=== PATIENT | female | born 1950 | race Caucasian/White ===

== ENCOUNTER → 2016-11-28 | Outpatient (REF) | payer OTHER ==
[~2016-11-28] MED LIST: ASPI81TA83 OR; DETROL PO; DIPH2.5L PO; GAS-80CH OR; IBUPPOW25 PO; MELOPOW PO; MULTIVIT PO
== END ==
LOC: M LAB REF 16:59
PROVIDERS: ATTEND Nurse Practitioner Adult Health
DX: D07.39 Carcinoma in situ of other female genital organs (principal)

== ENCOUNTER → 2016-12-15 | Outpatient (REF) | payer OTHER ==
[2016-12-15 18:17] LABS: THYROXINE (T4) 10.4 UG/DL (4.5-12.0)
== END ==
LOC: M LAB REF 16:59
PROVIDERS: ATTEND Internal Medicine Medical Oncology
DX: C91.10 Chronic lymphocytic leukemia of B-cell type not having achieved remission (principal)

== ENCOUNTER → 2017-01-16 | Outpatient (REF) | payer OTHER ==
[2017-01-16 13:41] LABS: FREE T4 1.07 NG/DL (0.76-1.46)
== END ==
LOC: M LAB REF 12:50
PROVIDERS: ATTEND Internal Medicine Medical Oncology
DX: C91.10 Chronic lymphocytic leukemia of B-cell type not having achieved remission (principal)

== ENCOUNTER → 2017-02-24 | Outpatient (CLI) | payer OTHER, MEDICARE ==
[~2017-02-24] MED LIST changes: +GASTROGRAFIN SOLUTION 30ML (Q9963) As Ordered ONE; +ISOVUE-370 76% 100ML VIAL (Q9967) As Ordered ONE
--- NOTE | 2017-02-24 13:49 | REP ---
Clinical: Chronic lymphocytic leukemia for follow up. Comparison: 08/04/2016. Technique: Axial contrast enhanced images from the lung bases to the pubic symphysis using oral and 100 ml Isovue 370 intravenous contrast material precontrast and delayed images of the abdomen as well as coronal and sagittal re-formations. Findings: Lung bases are clear. Visualized heart and pericardium are normal. Liver, spleen, pancreas, gallbladder, bilateral adrenal glands kidneys are normal. The enteric system is without obstruction or acute inflammatory process. Evidence of prior hiatal hernia repair at the gastroesophageal junction. Pelvis demonstrates normal bladder and evidence for prior hysterectomy no pelvic fluid/ascites. No free air. Previously noted mild retroperitoneal adenopathy has improved and currently the largest lymph node measures approximately 2.0 x 1.3 cm. Musculoskeletal structures demonstrate age-related degenerative changes without focal osseous abnormality. Impression: 1. Few retroperitoneal lymph nodes appear improved with the largest node measuring 2.0 x 1.3 cm. 2. No ascites or mass lesion. Signed by Nirmal Bansal MD 02/24/2017 01:41 P
--- NOTE | 2017-02-24 15:59 | REP ---
CT study of the chest with IV contrast: History: History of CLL. Abdominal and chest pain. Comparison chest CT study August 04, 2016. CT contrast dose: 100 mL of Isovue [address] chest findings: The lung motley are clear. There is no evidence of pleural or pericardial effusion. No hilar or mediastinal mass or adenopathy is observed. No adrenal lesion is seen. There are some surgical clips in the upper abdomen. The gallbladder is unremarkable. No hepatic or splenic lesion is seen. No bony destructive lesion is observed. Impression: No acute cardiopulmonary disease seen. Signed by Claus Chandler MD 02/24/2017 04:40 P
== END ==
LOC: M RAD 11:11
PROVIDERS: ATTEND Internal Medicine Medical Oncology
DX: C91.10 Chronic lymphocytic leukemia of B-cell type not having achieved remission (principal); R59.9 Enlarged lymph nodes, unspecified

== ENCOUNTER → 2017-06-19 | Outpatient (REF) | payer OTHER, MEDICARE ==
[~2017-06-19] MED LIST changes: -GASTROGRAFIN SOLUTION 30ML (Q9963) As Ordered ONE; -ISOVUE-370 76% 100ML VIAL (Q9967) As Ordered ONE
== END ==
LOC: M LAB REF 16:10
PROVIDERS: ATTEND Nurse Practitioner Adult Health
DX: R19.7 Diarrhea, unspecified (principal)

== ENCOUNTER → 2017-07-11 | Outpatient (CLI) | payer OTHER, MEDICARE ==
[~2017-07-11] MED LIST changes: +GASTROGRAFIN SOLUTION 30ML (Q9963) As Ordered ONE; +ISOVUE-370 76% 100ML VIAL (Q9967) As Ordered ONE
--- NOTE | 2017-07-12 05:47 | REP ---
Clinical: Chronic lymphocytic leukemia. Technique: Axial contrast enhanced images from the lung bases to the pubic symphysis using oral and 100 ml Isovue 370 intravenous contrast material with precontrast and delayed images of the abdomen along with coronal and sagittal re-formations. Comparison: 02/24/2017. Findings: Few scattered retroperitoneal lymph nodes primarily noted at the level of the kidneys are essentially unchanged with the largest lymph node measuring 2.0 x 1.3 cm (image 68). No new or enlarging adenopathy or mass lesion identified. Liver, spleen, atrophic pancreas, gallbladder, bilateral adrenal glands and kidneys are relatively normal. The enteric system is without obstruction or acute inflammatory process. Scattered colonic diverticula noted without acute diverticulitis. Pelvis demonstrates collapsed bladder and evidence for prior hysterectomy. No pelvic fluid or ascites. No free air. Abdominal aorta demonstrates atherosclerotic changes without aneurysm or dissection. Musculoskeletal structures demonstrate age-related degenerative change without focal osseous abnormality. 3 mm noncalcified nodule in the left lung base (image 23). Impression: Few stable retroperitoneal lymph nodes are again identified measuring up to 2.0 x 1.3 cm. No further adenopathy, mass, or ascites. 2. Scattered diverticula without acute diverticulitis. 3. 3 mm noncalcified nodule in the left lower lobe. Signed by Nirmal Bansal MD 07/12/2017 05:39 A
--- NOTE | 2017-07-12 07:51 | REP ---
Clinical: Chronic lymphocytic leukemia. Technique: Axial contrast enhanced images from the thoracic inlet to the upper abdomen using 100 ml Isovue 370 intravenous contrast material with coronal and sagittal re-formations. Comparison: 02/24/2017. Findings: Lung motley demonstrate chronic interstitial changes. No acute consolidation, significant nodule or mass lesion. No pleural effusion/reaction or pneumothorax. Tracheobronchial tree is patent. No axillary, hilar or mediastinal adenopathy. Mediastinum demonstrates atherosclerotic changes to the thoracic aorta without aneurysm or dissection. No cardiomegaly or pericardial effusion. Limited upper abdomen demonstrates normal bilateral adrenal glands and surgical clips at the gastroesophageal junction suggesting prior fundoplasty. Surrounding musculoskeletal structures without focal osseous abnormality. Impression: Chronic interstitial changes. No acute mediastinal or pleuroparenchymal process. Signed by Nirmal Bansal MD 07/12/2017 07:42 A
== END ==
LOC: M RAD 15:13
PROVIDERS: ATTEND Internal Medicine Medical Oncology
DX: C91.10 Chronic lymphocytic leukemia of B-cell type not having achieved remission (principal)

== ENCOUNTER → 2017-12-29 | Outpatient (CLI) | payer OTHER, MEDICARE ==
[~2017-12-29] MED LIST changes: -ASPI81TA83 OR; -DETROL PO; -DIPH2.5L PO; -GAS-80CH OR; +GASTROGRAFIN SOLUTION 30ML (Q9963) As Ordered; -GASTROGRAFIN SOLUTION 30ML (Q9963) As Ordered ONE; -IBUPPOW25 PO; +ISOVUE-370 76% 100ML VIAL (Q9967) As Ordered; -ISOVUE-370 76% 100ML VIAL (Q9967) As Ordered ONE; -MELOPOW PO; -MULTIVIT PO
== END ==
LOC: M RAD 08:48
DX: C91.10 Chronic lymphocytic leukemia of B-cell type not having achieved remission (principal); Z92.21 Personal history of antineoplastic chemotherapy
CPT/HCPCS: Q9963

== ENCOUNTER → 2018-02-06 | Outpatient (REF) | payer OTHER, MEDICARE ==
[2018-02-06 14:14] LABS: FERRITIN 20 NG/ML (8-252); IRON (FE) 54 UG/DL (50-170); PERCENT SATURATION 15.1 % (13.2-45.0); TOTAL IRON BINDING CAPACITY 357 UG/DL (250-450)
== END ==
LOC: M LAB REF 13:16
DX: C91.10 Chronic lymphocytic leukemia of B-cell type not having achieved remission (principal)

== ENCOUNTER → 2018-03-26 | Outpatient (REF) | payer OTHER, MEDICARE ==
[2018-03-28 09:18] LABS: LDL DIRECT 93 mg/dL (0-99)
== END ==
LOC: M LAB REF 17:11
DX: E78.5 Hyperlipidemia, unspecified (principal)
CPT/HCPCS: 83721

== ENCOUNTER → 2018-03-26 | Outpatient (REF) | payer OTHER, MEDICARE | LOC: M LAB REF 15:28 | DX: R19.7 Diarrhea, unspecified (principal) | CPT/HCPCS: 87507 ==

== ENCOUNTER → 2018-06-18 | Outpatient (REF) | payer OTHER, MEDICARE ==
[2018-06-18 18:43] LABS: FERRITIN 15 NG/ML (8-252); IRON (FE) 40 UG/DL (50-170); PERCENT SATURATION 11.9 % (13.2-45.0); TOTAL IRON BINDING CAPACITY 337 UG/DL (250-450)
== END ==
LOC: M LAB REF 17:19
DX: D64.9 Anemia, unspecified (principal); C91.10 Chronic lymphocytic leukemia of B-cell type not having achieved remission

== ENCOUNTER 2018-10-15 11:46 | Day surgery (SDC) | payer OTHER, MEDICARE ==
[~2018-10-15] VITALS: Ht 162.6 cm; Wt 120.2 kg
[~2018-10-15 11:46] MED LIST changes: +ACET1TAB16 PO; +ASPI81TA83 OR; +BACT800T5 PO; +DETR4CAP PO; +DETROL PO; +DICY1CAP8 PO; +DIPH2.5L PO; +ENAL5TAB PO; +FURO20TA2 PO; +GABA-843 PO; +GAS-80CH OR; -GASTROGRAFIN SOLUTION 30ML (Q9963) As Ordered; +IBUPPOW25 PO; +IMBR1CAP PO; -ISOVUE-370 76% 100ML VIAL (Q9967) As Ordered; +LOMO2.5T PO; +MELOPOW PO; +MULTIVIT PO; +NAPR500T6 PO; +NS 1,000 ML IV ONE; +OMEP40CA2 PO; +VITA2000 PO; +ZOFR4TAB16 PO
[2018-10-15] MEDS ORDERED: fentaNYL 100 MCG/2 ML INJECTION (J3010) As Ordered ONE (14:59)
[2018-10-15] MEDS ORDERED: LIDOCAINE 2% INJ 100 MG/5 ML SYRINGE As Ordered ONE (14:59)
[2018-10-15] MEDS ORDERED: PROPOFOL 200 MG/20 ML VIAL As Ordered ONE (14:59)
--- NOTE | 2018-10-15 15:14 | ROOR ---
Patient Name: Aurora Vazquez Procedure Date: 10/15/2018 3:00 PM Date of : 1950 Age: 67 Room: [facility] Gender: Female Note Status: Finalized Procedure: Upper GI endoscopy Indications: Iron deficiency anemia Providers: Lamonte KUMAR MD Referring MD: Sushila Berry NP, Ayleen HARMON MD Requesting Provider: Medicines: Monitored Anesthesia Care Complications: No immediate complications. Procedure: Pre-Anesthesia Assessment: - The heart rate, respiratory rate, oxygen saturations, blood pressure, adequacy of pulmonary ventilation, and response to care were monitored throughout the procedure. The Endoscope was introduced through the mouth, and advanced to the second part of duodenum. The upper GI endoscopy was accomplished without difficulty. The patient tolerated the procedure well. Findings: The esophagus was normal. The stomach was normal. The examined duodenum was normal. Biopsies for histology were taken with a cold forceps in the second portion of the duodenum and in the third portion of the duodenum for evaluation of celiac disease. Impression: - Normal esophagus. - Normal stomach. - Normal examined duodenum. - Biopsies were taken with a cold forceps for evaluation of celiac disease. Recommendation: - Telephone endoscopist for pathology results in 2 weeks. - Observe patient's clinical course. Lamonte Kumar MD Lamonte KUMAR MD 10/15/2018 3:13:45 PM This report has been signed electronically. Number of Addenda: 0 Note Initiated On: 10/15/2018 3:00 PM Estimated Blood Loss: Estimated blood loss: none.
--- NOTE | 2018-10-15 15:33 | ROOR ---
Patient Name: Aurora Vazquez Procedure Date: 10/15/2018 3:03 PM Date of : 1950 Age: 67 Room: [facility] Gender: Female Note Status: Finalized Procedure: Colonoscopy Indications: Iron deficiency anemia Providers: Lamonte KUMAR MD Referring MD: Sushila Berry NP, Ayleen HARMON MD Requesting Provider: Medicines: Monitored Anesthesia Care Complications: No immediate complications. Procedure: Pre-Anesthesia Assessment: - The heart rate, respiratory rate, oxygen saturations, blood pressure, adequacy of pulmonary ventilation, and response to care were monitored throughout the procedure. The Colonoscope was introduced through the anus and advanced to the terminal ileum, with identification of the appendiceal orifice and IC valve. The colonoscopy was performed without difficulty. The patient tolerated the procedure well. The quality of the bowel preparation was good. Findings: The perianal and digital rectal examinations were normal. A 4 mm polyp was found in the sigmoid colon. The polyp was sessile. The polyp was removed with a cold snare. Resection and retrieval were complete. The exam was otherwise without abnormality on direct and retroflexion views. The terminal ileum appeared normal. Impression: - The examined portion of the ileum was normal. - One 4 mm polyp in the sigmoid colon, removed with a cold snare. Resected and retrieved. - The colon examination was otherwise normal on direct and retroflexion views. Recommendation: - Telephone endoscopist for pathology results in 2 weeks. - If the pathology report reveals adenomatous tissue, then repeat the colonoscopy for surveillance in 5 years. - If the pathology report indicates hyperplastic polyp, then repeat colonoscopy for screening purposes in 10 years. Lamonte Kumar MD Lamonte KUMAR MD 10/15/2018 3:32:47 PM This report has been signed electronically. Number of Addenda: 0 Note Initiated On: 10/15/2018 3:03 PM Estimated Blood Loss: Estimated blood loss: none.
[2018-10-15 16:00] VITALS: BP 151/93
== END 2018-10-15 16:10 | disposition home or self-care (01) ==
LOC: M OPP 11:46
PROVIDERS: ATTEND Internal Medicine Gastroenterology
DX: D50.9 Iron deficiency anemia, unspecified (principal); R19.7 Diarrhea, unspecified; K63.5 Polyp of colon; E11.9 Type 2 diabetes mellitus without complications; M79.7 Fibromyalgia; K58.9 Irritable bowel syndrome, unspecified; K57.90 Diverticulosis of intestine, part unspecified, without perforation or abscess without bleeding; R12 Heartburn; Z85.43 Personal history of malignant neoplasm of ovary; Z79.899 Other long term (current) drug therapy; Z88.5 Allergy status to narcotic agent
CPT/HCPCS: 43239; 45385; 88305; J3010

== ENCOUNTER → 2018-12-31 | Outpatient (CLI) | payer OTHER, MEDICARE ==
[~2018-12-31] MED LIST changes: +B121000T SL; +KENAAER3 TOP; -NS 1,000 ML IV ONE; +VITA1CAP25 PO
[2018-12-31 17:26] LABS: BASO % 0.5 % (0.0-1.0); EOS # 0.2 10^3/uL (0.0-0.50); EOS % 2.9 % (0.0-3.0); HEMATOCRIT 37.6 % (36.0-47.0); HEMOGLOBIN 12.1 g/dl (12.0-15.5); LYMPH # 3.4 10^3/uL (1.5-4.5); LYMPH % 46.8 % (24.0-44.0); MEAN CORPUSCULAR HEMOGLOBIN 28.2 pg (27.0-33.0); MEAN CORPUSCULAR HGB CONC 32.2 g/dl (32.0-36.5); MEAN CORPUSCULAR VOLUME 87.6 fl (80.0-96.0); MONO # 0.5 10^3/uL (0.0-0.8); MONO % 6.5 % (0.0-5.0); NEUTROPHILS # 3.1 10^3/uL (1.8-7.7); NEUTROPHILS % 42.8 % (36.0-66.0); PLATELET COUNT, AUTOMATED 155 10^3/uL (150-450); RED BLOOD COUNT 4.29 10^6/uL (4.00-5.40); WHITE BLOOD COUNT 7.4 10^3/uL (4.0-10.0)
[2018-12-31 17:27] LABS: ALBUMIN 3.9 GM/DL (3.2-5.2); ALT/SGPT 25 U/L (12-78); BILIRUBIN,TOTAL 0.3 MG/DL (0.2-1.0); BLOOD UREA NITROGEN 17 MG/DL (7-18); CALCIUM LEVEL 8.6 MG/DL (8.8-10.2); CARBON DIOXIDE LEVEL 29 MEQ/L (21-32); CHLORIDE LEVEL 107 MEQ/L (98-107); CREATININE FOR GFR 0.93 MG/DL (0.55-1.30); FERRITIN 688 NG/ML (8-252); GLOMERULAR FILTRATION RATE > 60.0 (>45); GLUCOSE, FASTING 132 MG/DL (70-100); IMMUNOGLOBULIN A 94.4 MG/DL (70-400); LDH LACTATE DEHYDROGENASE 180 U/L (84-246); POTASSIUM SERUM 5.4 MEQ/L (3.5-5.1); SODIUM LEVEL 140 MEQ/L (136-145); TOTAL PROTEIN 6.3 GM/DL (6.4-8.2)
[2019-01-01 14:11] LABS: VITAMIN B12 LEVEL 671 PG/ML (247-911)
== END ==
LOC: M LAB 16:19
PROVIDERS: ATTEND Internal Medicine Hematology & Oncology
DX: Z51.81 Encounter for therapeutic drug level monitoring (principal)

== ENCOUNTER → 2019-01-07 | Outpatient (CLI) | payer OTHER, MEDICARE ==
--- NOTE | 2019-01-07 17:18 | REP ---
Right lower extremity deep vein duplex ultrasound: The deep veins demonstrate normal compression, normal Doppler color flow and normal Doppler waveforms with respiration and augmentation from the popliteal vein to the common femoral vein. There is a popliteal fossa Lama's cyst measuring 4.7 x 2.5 x 3.3 cm. Impression: There is no deep vein thrombus. Popliteal fossa Lama's cyst. Electronically Signed by Jerry Santoro MD 01/07/2019 05:10 P
== END ==
LOC: M RAD 16:20
PROVIDERS: ATTEND Nurse Practitioner Family
DX: M79.604 Pain in right leg (principal); R22.41 Localized swelling, mass and lump, right lower limb

== ENCOUNTER → 2019-01-29 | Outpatient (CLI) | payer OTHER, MEDICARE ==
[2019-01-29 16:13] LABS: BASO # 0.1 10^3/uL (0.0-0.2); BASO % 0.6 % (0.0-1.0); EOS # 0.2 10^3/uL (0.0-0.50); EOS % 2.9 % (0.0-3.0); HEMATOCRIT 38.8 % (36.0-47.0); HEMOGLOBIN 12.5 g/dl (12.0-15.5); LYMPH # 3.5 10^3/uL (1.5-4.5); MEAN CORPUSCULAR HEMOGLOBIN 28.9 pg (27.0-33.0); MEAN CORPUSCULAR HGB CONC 32.2 g/dl (32.0-36.5); MEAN CORPUSCULAR VOLUME 89.8 fl (80.0-96.0); MONO # 0.4 10^3/uL (0.0-0.8); MONO % 4.8 % (0.0-5.0); NEUTROPHILS # 4.1 10^3/uL (1.8-7.7); NEUTROPHILS % 48.9 % (36.0-66.0); PLATELET COUNT, AUTOMATED 167 10^3/uL (150-450); RED BLOOD COUNT 4.32 10^6/uL (4.00-5.40); WHITE BLOOD COUNT 8.3 10^3/uL (4.0-10.0)
[2019-01-29 16:48] LABS: ALBUMIN 3.9 GM/DL (3.2-5.2); BILIRUBIN,TOTAL 0.3 MG/DL (0.2-1.0); CALCIUM LEVEL 8.8 MG/DL (8.8-10.2); CREATININE FOR GFR 1.09 MG/DL (0.55-1.30); GLOMERULAR FILTRATION RATE 53.3 (>45); POTASSIUM SERUM 5.2 MEQ/L (3.5-5.1); TOTAL PROTEIN 6.3 GM/DL (6.4-8.2)
== END ==
LOC: M LAB 15:27
PROVIDERS: ATTEND Internal Medicine Hematology & Oncology
DX: C91.10 Chronic lymphocytic leukemia of B-cell type not having achieved remission (principal); D72.820 Lymphocytosis (symptomatic); D64.9 Anemia, unspecified

== ENCOUNTER → 2019-04-08 | Outpatient (REF) | payer OTHER, MEDICARE | LOC: M LAB REF 16:33 | PROVIDERS: ATTEND Nurse Practitioner Adult Health | DX: Z11.59 Encounter for screening for other viral diseases (principal) ==

== ENCOUNTER → 2019-05-03 | Outpatient (CLI) | payer OTHER, MEDICARE ==
--- NOTE | 2019-05-04 07:27 | REP ---
Clinical: Fall. Bilateral elbow pain . Technique: AP, lateral, bilateral oblique views of the right and left elbow. Findings: No acute fracture or dislocation is appreciated. Joint spaces and surrounding soft tissues appear normal. Lateral view demonstrates normal positioning to the anterior and posterior fat pads without evidence for effusion/hemarthrosis. No subcutaneous emphysema or foreign body identified. Impression: Normal bilateral elbow radiographs. Electronically Signed by Nirmal Bansal MD 05/04/2019 07:19 A
== END ==
LOC: M RAD 18:46
PROVIDERS: ATTEND Physician Assistant
DX: M25.521 Pain in right elbow (principal); M25.522 Pain in left elbow

== ENCOUNTER → 2019-07-19 | Outpatient (CLI) | payer OTHER, MEDICARE ==
[~2019-07-19] MED LIST changes: +AMLO5TAB6 PO; +D200CAP2 PO; -OMEP40CA2 PO; +OMEP40CA97 PO; +THERTAB52 PO
--- NOTE | 2019-07-19 19:15 | REP ---
MRI left elbow without contrast: History: Pain in the left elbow. Comparison left elbow radiographs are from May 03, 2019. Rule out cubital nerve compression. Technique: Axial, coronal and sagittal imaging planes are utilized for T1 and T2-weighted scans obtained with and without fat saturation. MRI findings: Cortical and medullary bone signal intensity are normal in the distal humerus, proximal radius, and proximal ulna. Triceps tendon, biceps tendon, and brachialis tendons appear intact. No evidence of elbow joint effusion is seen. Medial and lateral collateral ligaments appear intact. There is some edema adjacent to the medial epicondyle consistent with medial epicondylitis. No articular cartilage lesion is appreciated. Axial T1 and T2-weighted scans do not show abnormal T2 hyperintensity or thickening in the ulnar nerve. There is no evidence of accessory muscle or abnormal tethering of course in the ulnar nerve in the scan plane. There is no evidence of distal humeral exostosis. Impression: No MR evidence of ulnar nerve compression seen. There is some T2 hyperintensity at the medial epicondyle which may reflect medial epicondylitis. Electronically Signed by Claus Chandler MD 07/19/2019 07:54 P
== END ==
LOC: M PLARAD 15:26
PROVIDERS: ATTEND Orthopaedic Surgery Sports Medicine
DX: R60.0 Localized edema (principal); M25.522 Pain in left elbow

== ENCOUNTER 2019-09-01 02:39 | Inpatient (IN) | payer OTHER, MEDICARE ==
[~2019-09-01] VITALS: Ht 162.6 cm; Wt 122.3 kg
[2019-09-01 03:24] LABS: BASO % 0.4 % (0.0-1.0); EOS % 0.4 % (0.0-3.0); HEMATOCRIT 43.5 % (36.0-47.0); HEMOGLOBIN 13.8 g/dl (12.0-15.5); LYMPH # 3.1 10^3/uL (1.5-5.0); LYMPH % 31.1 % (24.0-44.0); MEAN CORPUSCULAR HGB CONC 31.7 g/dl (32.0-36.5); MEAN CORPUSCULAR VOLUME 91.4 fl (80.0-96.0); MONO # 0.4 10^3/uL (0.0-0.8); NEUTROPHILS # 6.3 10^3/uL (1.5-8.5); NEUTROPHILS % 63.8 % (36.0-66.0); PLATELET COUNT, AUTOMATED 161 10^3/uL (150-450); RED BLOOD COUNT 4.76 10^6/uL (4.00-5.40); WHITE BLOOD COUNT 9.8 10^3/uL (4.0-10.0)
[2019-09-01] MEDS ORDERED: METOCLOPRAMIDE INJ 10MG/2ML VIAL (J2765) IV ONE (03:30)
[2019-09-01] MEDS ORDERED: MORPHINE 4 MG/ML 1ML VIAL/SYRINGE (J2270) IV ONE ×3 (03:30→05:30)
[2019-09-01 04:11] LABS: ALBUMIN 3.9 GM/DL (3.2-5.2); BILIRUBIN,DIRECT 0.5 MG/DL (0.0-0.2); BILIRUBIN,TOTAL 1.1 MG/DL (0.2-1.0); CALCIUM LEVEL 9.4 MG/DL (8.8-10.2); CREATININE FOR GFR 1.06 MG/DL (0.55-1.30); POTASSIUM SERUM 4.3 MEQ/L (3.5-5.1); TOTAL PROTEIN 6.7 GM/DL (6.4-8.2)
[2019-09-01] MEDS ORDERED: ISOVUE-370 76% 100ML VIAL (Q9967) As Ordered ONE (04:22)
[2019-09-01] MEDS ORDERED: NS 1,000 ML IV ONE (04:30)
[2019-09-01] MEDS ORDERED: LIDOCAINE 2% 5ML JELLY UROJET TOP ONE (05:00)
--- NOTE | 2019-09-01 05:01 | REPVR ---
PROCEDURE INFORMATION: Exam: CT Abdomen And Pelvis With Contrast Exam date and time: 09/01/2019 4:29 AM Age: 68 years old Clinical history: Abdominal pain; Generalized; Additional info: Pancreatitis TECHNIQUE: Imaging protocol: Computed tomography of the abdomen and pelvis with intravenous contrast. Radiation optimization: All CT scans at this facility use at least one of these dose optimization techniques: automated exposure control; mA and/or kV adjustment per patient size (includes targeted exams where dose is matched to clinical indication); or iterative reconstruction. Contrast material: ISOVUE 370; Contrast volume: 100 ml; Contrast route: IV; COMPARISON: CT ABD PELVIS W/O FOL BY WIT 12/29/2017 10:12 AM FINDINGS: Lungs: There are bilateral posterior dependent lung atelectasis. Pleural space: There is a partially imaged pleural-based 6-7 mm nodule (axial image 1). Another 3 mm pleural-based nodule seen in the right middle lobe. There is a 4-5 mm lingular nodule (axial image 6). Liver: The liver appeared to be hypoattenuated. Gallbladder and bile ducts: Normal. No calcified stones. No ductal dilation. Pancreas: The pancreas is fatty-replaced. Spleen: Normal. No splenomegaly. Adrenals: Normal. No mass. Kidneys and ureters: Normal. No hydronephrosis. Stomach and bowel: The stomach is massively distended with air. There are multiple markedly dilated bowel loops measuring up to 5.5 cm with collapsed distal small bowel loops. There appears to be progressive decrease in caliber of bowel dilatation in the lower abdomen. Appendix: No evidence of appendicitis. Intraperitoneal space: There is diffuse mesenteric haziness. There are multiple prominent small bowel mesenteric lymph nodes measuring up to 1.7 cm. Vasculature: There is moderate aortic and iliac mural calcifications. Lymph nodes: There are multiple prominent lymph nodes in the duglas hepatis measuring up to 4.0 x 2.5 cm. Multiple bulky retroperitoneal lymph nodes seen measuring up to 6.7 x 4.2 cm with lymph nodes seen in the left periaortic space, aortocaval space and pericaval space. Shotty inguinal and bilateral axillary lymph nodes seen. Multiple enlarged pelvic sidewall lymph nodes seen. Bladder: Unremarkable as visualized. Reproductive: Unremarkable as visualized. Bones/joints: There is severe L4-5 and L5 S1 as well as L2-L3 disc degenerative changes with facet arthrosis. There is a grade 1 retrolisthesis of L2 on L3. Soft tissues: Unremarkable. IMPRESSION: 1. Multiple dilated small bowel loops measuring up to 5.5 cm with marked dilatation of the stomach and duodenum with nondilated distal small bowel loop but no obvious sudden transition point. Findings suggestive of small bowel obstruction, partial or complete. 2. Bulky retroperitoneal and duglas hepatis adenopathy in addition to numerous shotty and prominent bilateral inguinal, pelvic sidewalls, diffuse mesenteric, retrocrural and axillary shotty lymph nodes. 3. Fatty infiltration of the liver. 4. Right middle lobe and lingular nodules measuring up to 6-7 mm. Given the findings of the extensive adenopathy, [facility] follow up recommendations for incidental nodules are not indicated. Dedicated CT scan of the chest is suggested for better evaluation of the lung parenchyma. Electronically signed by: Brian Girard On 09/01/2019 05:01:12 AM
[2019-09-01] MEDS ORDERED: MORPHINE 2 MG/ML 1ML VIAL (J2270) IV PRN (06:15)
[2019-09-01] MEDS ORDERED: ONDANSETRON 4MG/2ML VIAL (J2405) IV PRN (06:15)
[2019-09-01] MEDS ORDERED: GLUCAGON FOR INJ 1 MG VIAL (J1610) SC PRN (07:00)
[2019-09-01] MEDS ORDERED: DEXTROSE 50% 50 ML SYRINGE IV PRN (07:00)
[2019-09-01] MEDS ORDERED: GLUCOSE 4 GM CHEW TABLET PO PRN (07:00)
--- NOTE | 2019-09-01 07:03 | HPEPDOC ---
General Date of Admission 09/01/19 Date of Service: Sep 01, 2019 Chief Complaint The patient is a 68-year-old female admitted with a reason for visit of Abd/Shoulder Pain. Source: Patient, RN/MD, Old records Exam Limitations: No limitations History of Present Illness 68 year old female with PMH of CLL/Small lymphocytic lymphoma in remission, Hiatal hernia s/p jocelin fundoplication, Diabetes diet controlled, Morbid obesity, hypertension, IBS, fibromyalgia, Ovarian cancer s/p HALLIE and BSO in 1986, iron def anemia,, esophageal dilatation, c section, appendectomy, rectocele repair, 3 mastoidectomies with cochlear implant which did not work, nerve block for back pain, carpal tunnel release on right in , tonsillectomy , carpal tunnel repair on the left on 08/27/19presented to the ED for abdominal pain , nausea, dry heaves, and abdominal bloating and distension for 2 to 3 days worst last night so came to the ED this morning. The abdominal pain was diffuse 8/10 intensity stretching in type with extreme distension and tightness of the abdomen. She had a bowel movement 2 days ago. Normally her bowel movements are irregular due to IBS. In the ED CT showed SBO . Multiple dilated small bowel loops measuring up to 5.5 cm with marked dilatation of the stomach and duodenum with nondilated distal small bowel loop but no obvious sudden transition point. Findings suggestive of small bowel obstruction, partial or complete. Also Bulky retroperitoneal and duglas hepatis adenopathy in addition to numerous shotty and prominent bilateral inguinal, pelvic sidewalls, diffuse mesenteric, retrocrural and axillary shotty lymph nodes.. Labs were significant for elevated lipase > 4000 . NG placement in the ED produced huge amounts of air. Patient was admitted for SBO and Pancreatitis. Home Medications Scheduled Amlodipine Besylate (Amlodipine Besylate) 5 Mg Tablet, 5 MG PO DAILY, (Reported) Cholecalciferol (Vitamin D3) (Vitamin D3) 2,000 Unit Capsule, 2,000 UNITS PO DAILY, (Reported) Cyanocobalamin (Vitamin B-12) (Vitamin B-12) 1,000 Mcg Tab, 500 MCG SL DAILY Dicyclomine HCl (Dicyclomine HCl) 10 Mg Cap, 10 MG PO BID for irritable bowel symptoms, (Reported) Furosemide (Furosemide) 20 Mg Tab, 20 MG PO DAILY, (Reported) Gabapentin (Gabapentin) 300 Mg Cap, 300 MG PO TID, (Reported) Naproxen (Naproxen) 500 Mg Tab, 500 MG PO BID, (Reported) Omeprazole (Omeprazole) 40 Mg Cap, 40 MG PO BID, (Reported) Tolterodine Tartrate (Detrol LA) 4 Mg Cap, 4 MG PO DAILY, (Reported) Scheduled PRN Acetaminophen with Codeine (Acetaminophen-Cod #3 Tablet) 1 Tab Tab, 1 TAB PO Q6H PRN for PAIN, (Reported) Diphenoxylate HCl/Atropine (Lomotil 2.5-0.025 mg Tablet) 1 Tab Tab, 1 TAB PO QIDP PRN for DIARRHEA, (Reported) Allergies Coded Allergies: Quinolones (Verified Adverse Reaction, Intermediate, on chemo, 01/03/19) hydrocodone (Verified Adverse Reaction, Intermediate, n/v, 01/03/19) tetracycline (Verified Adverse Reaction, Mild, hyper, couldn't sleep, 01/03/19) Past Medical History Medical History CLL/Small lymphocytic lymphoma in remission, c section, appendectomy, Ovarian cancer s/p HALLIE and BSO in 1986, Hiatal hernia s/p laparoscopic jocelin fundoplication in late , Diabetes diet controlled, Morbid obesity, hypertension, IBS, fibromyalgia, iron def anemia,, esophageal dilatation, rectocele repair, 3 mastoidectomies with cochlear implant which did not work, nerve block for back pain, carpal tunnel release on cheyan[place] right in , tonsillectomy carpal tunnel repair on the left on 08/27/19 Family History Significant Family History: Cancer (sister gastric cancer , another brother prostate cancer , another brother sarcoma , ), Diabetes (mother and 1 brother), Heart disease (another brother), Hypertension (brother) Social History * Smoker: Denies Alcohol: Denies Drugs: denies A-FIB/CHADSVASC A-FIB History Current/History of A-Fib/PAF?: No Review of Systems Constitutional: Denies: Chills, Fever, Night Sweats Eyes: Denies: Pain, Vision change ENT: Denies: Head Aches, Ear Pain, Dysphagia Skin: Denies: Rash, Lesions, Breakdown Pulmonary: Denies: Dyspnea, Cough Cardiovascular: Denies: Chest Pain, Palpitations, Orthopnea, Paroxysmal Noc. Dyspnea, Lt Headedness Gastrointestinal: Reports: Nausea, Abdominal Pain, Other Symptoms (dry heaves) Genitourinary: Denies: Dysuria, Frequency, Incontinence, Retention Musculoskeletal: Reports: Back Pain, Hand Pain Neurological: Denies: Weakness, Numbness, Change in speech, Confusion Physical Examination General Exam: Positive: Alert, Cooperative, No Acute Distress Eye Exam: Positive: PERRLA, Conjunctiva & lids normal, EOMI; Negative: Sclera icteric ENT Exam: Positive: Atraumatic, Mucous membr. moist/pink, Pharynx Normal Neck Exam: Positive: Supple; Negative: JVD, thyromegaly Chest Exam: Positive: Normal air movement, Other (few bibasal crackles) Heart Exam: Positive: Rate Normal, Regular Rhythm, Normal S1, Normal S2; Negative: Murmurs, Rubs Telemetry: Positive: No significant arrhythmia Abdomen Exam: Positive: BS Hypoactive, Soft, Tenderness (in the epigastrium) Extremity Exam: Positive: Edema (trace); Negative: Clubbing, Cyanosis Skin Exam: Positive: Nl turgor and temperature; Negative: Breakdown, Lesion Neuro Exam: Positive: Normal Speech, Strength at 5/5 X4 ext, Normal Tone Psych Exam: Positive: Mood NL, Memory Intact, Oriented x 3 Vital Signs Vital Signs Date Time Temp Pulse Resp B/P (MAP) Pulse Ox O2 Delivery O2 Flow Rate FiO2 09/01/19 05:39 18 09/01/19 05:31 97.6 108 103/57 (72) 93 Room Air Laboratory Data Labs 24H Laboratory Tests 2 09/01/19 03:15: Immature Granulocyte % (Auto) 0.3, Neutrophils (%) (Auto) 63.8, Lymphocytes (%) (Auto) 31.1, Monocytes (%) (Auto) 4.0, Eosinophils (%) (Auto) 0.4, Basophils (%) (Auto) 0.4, Neutrophils # (Auto) 6.3, Lymphocytes # (Auto) 3.1, Monocytes # (A uto) 0.4, Eosinophils # (Auto) 0.0, Basophils # (Auto) 0.0, Nucleated Red Blood Cells % (auto) 0.0, Urine Color YELLOW, Urine Appearance CLEAR, Urine pH 5.0, Urine Specific Bon[place]arte 1.038, Urine Protein NEGATIVE, Urine Glucose (UA) 3+H, Urine Ketones 1+H, Urine Blood NEGATIVE, Urine Nitrite NEGATIVE, Urine Bilirubin NEGATIVE, Urine Urobilinogen 0.2, Urine Leukocyte Esterase NEGATIVE, Urine WBC (Auto) 1, Urine RBC (Auto) 1, Urine Hyaline Casts (Auto) 0, Urine Bacteria (Auto) NEGATIVE, Urine Squamous Epithelial Cells 1, Urine Sperm (Auto) , Anion Gap 9, Glomerular Filtration Rate 55.0, Calcium Level 9.4, Total Bilirubin 1.1H, Direct Bilirubin 0.5H, Aspartate Amino Transf (AST/SGOT) 112H, Alanine Aminotransferase (ALT/SGPT) 64, Alkaline Phosphatase 121H, Total Protein 6.7, Albumin 3.9, Albumin/Globulin Ratio 1.39, Lipase 4739H 09/01/19 06:12: CBC/BMP Laboratory Tests 09/01/19 03:15 Assessment/Plan 68 year old female with PMH of CLL/Small lymphocytic lymphoma in remission, Hiatal hernia s/p jocelin fundoplication, Diabetes diet controlled, Morbid obesi ty, hypertension, IBS, fibromyalgia, Ovarian cancer s/p HALLIE and BSO in 1986, iron def anemia,, esophageal dilatation, c section, appendectomy, rectocele repair, 3 mastoidectomies with cochlear implant which did not work, nerve block for back pain, carpal tunnel release on right in , tonsillectomy , carpal tunnel repair on the left on 08/27/19 presented to the ED for abdominal pain , nausea, dry heaves, and abdominal bloating and distension for 2 to 3 days worst last night so came to the ED this morning. The abdominal pain was diffuse 8/10 intensity stretching in type with extreme distension and tightness of the abdomen. She had a bowel movement 2 days ago. She was found to have SBO and pancreatitis. SBO NPO, NG tube to LIS, IVF, zofran and morphine. consult surgery possibly cause adhesions from multiple abdominal surgeries particularly the Jocelin fundoplication vs compression by bulky retroperitoneal lymph nodes May have been precipitated by recent surgery and use of tylenol with codeine. pateint has also been taking the imodium, detrol, diccycclomine which may have worsened the problem. Pancreatitis NPO, IVF , morphine. Diabetes diet controlled will order FS bid as pateint is going to be npo. CLL/SLL with diffuse lymphadenopathy . currently in remission. last chemotherapy was in oct 2018 Hypertension amlodipine with hold parameters IBS will hold imodium and dicyclomine Fibromyalgia will hold gabapentin while npo. Morbid obesity with fatty live complicating care Plan / VTE VTE Prophylaxis Ordered?: Yes LUKAS CHUNG MD Sep 01, 2019 06:24
[2019-09-01] MEDS: LR 1,000 ML IV SCH ×2 (07:10→16:20)
[2019-09-01 08:43] VITALS: BP 143/86
[2019-09-01 10:03] VITALS: BP 143/86
[2019-09-01] MEDS: amLODIPine 5 MG TAB PO SCH (10:03)
[2019-09-01] MEDS: PANTOPRAZOLE 40MG INJ (PROTONIX) (C9113) IV SCH (10:04)
[2019-09-01] MEDS: HEPARIN SOD (PORCINE) 5000 UNITS/ML VIAL SC SCH ×2 (10:04→20:20)
--- NOTE | 2019-09-01 12:24 | IPNPDOC ---
Date Seen The patient was seen on 09/01/19. Progress Note SUBJECTIVE: Patient reported significant improvement in symptoms this morning. NG with minimal drainage but abdomen are reportedly much less tense and distended. Denies significant nausea or discomfort at this time. OBJECTIVE PHYSICAL EXAMINATION: VITAL SIGNS: Please see below. General: No acute distress, Alert, NG tube in place Eyes: Normal sclera, EOMI, GEMMA HENT: Atraumatic Cardiovascular: Normal rate, normal rhythm. Pulmonary: Clear to auscultation b/l, no wheezing GI: Soft, nontender, mild distension Skin: Warm and dry Neuro: CN grossly intact. No focal deficits. Strengths equal b/l. Psych: oriented x 3 LABORATORY DATA, IMAGING STUDIES, MICROBIOLOGY: Please see below. DVT prophylaxis ordered?: HSQ ASSESSMENT AND PLAN: 1. SBO vs. Ileus - Symptoms improved. - Suspect partial obstruction. NGT in place with minimal drainage, likely more air in abdomen. - NPO. continue with NGT at this time. - Pain control. - Surgery consulted. Appreciated assistance. 2. Pancreatitis - No significant abdominal pain at this time. - NPO at this time, once improve, advance diet as tolerated. 3. DM - FS ACHS. Diet controlled. 4. CLL/SLL w/ leukocytosis - In remission. Last chemo Oct 2018 - Chronic Leukocytosis with atypical lymphocytes. 5. HTN - c/w Norvasc. 6. IBS - Hold imodium and dicyclomine. 7. Fibromyalgia - On gabapentin. Resume once patient no longer NPO. 8. Morbid obesity BMI 47.1 - complicating care. VS, I&O, 24H, Fishbone Vital Signs/I&O Vital Signs Date Time Temp Pulse Resp B/P (MAP) Pulse Ox O2 Delivery O2 Flow Rate FiO2 09/01/19 10:03 88 143/86 09/01/19 08:43 98.6 20 95 Room Air 09/01/19 06:46 2.0 Laboratory Data 24H LABS Laboratory Tests 2 09/01/19 03:15: Immature Granulocyte % (Auto) 0.3, Neutrophils (%) (Auto) 63.8, Lymphocytes (%) (Auto) 31.1, Monocytes (%) (Auto) 4.0, Eosinophils (%) (Auto) 0.4, Basophils (%) (Auto) 0.4, Neutrophils # (Auto) 6.3, Lymphocytes # (Auto) 3.1, Monocytes # (Auto) 0.4, Eosinophils # (Auto) 0.0, Basophils # (Auto) 0.0, Nucleated Red Blood Cells % (auto) 0.0, Urine Color YELLOW, Urine Appearance CLEAR, Urine pH 5.0, Urine Specific [place] 1.038, Urine Protein NEGATIVE, Urine Glucose (UA) 3+H, Urine Ketones 1+H, Urine Blood NEGATIVE, Urine Nitrite NEGATIVE, Urine Bilirubin NEGATIVE, Urine Urobilinogen 0.2, Urine Leukocyte Esterase NEGATIVE, Urine WBC (Auto) 1, Urine RBC (Auto) 1, Urine Hyaline Casts (Auto) 0, Urine Bacteria (Auto) NEGATIVE, Urine Squamous Epithelial Cells 1, Urine Sperm (Auto) , Anion Gap 9, Glomerular Filtration Rate 55.0, Calcium Level 9.4, Total Bilirubin 1.1H, Direct Bilirubin 0.5H, Aspartate Amino Transf (AST/SGOT) 112H, Alanine Aminotransferase (ALT/SGPT) 64, Alkaline Phosphatase 121H, Total Protein 6.7, Albumin 3.9, Albumin/Globulin Ratio 1.39, Lipase 4739H 09/01/19 06:12: Lactic Acid Level 1.5 CBC/BMP Laboratory Tests 09/01/19 03:15 MIN SIFUENTES MD Sep 01, 2019 12:24
[2019-09-01 14:00] VITALS: BP 143/85
--- NOTE | 2019-09-01 16:03 | CR ---
DATE OF CONSULTATION: 09/01/2019 CHIEF COMPLAINT: Bowel obstruction. HISTORY OF PRESENT ILLNESS: The patient is a 68-year-old female with a history of bowel obstruction in the past. She presented to the emergency room (ER) after having increasing abdominal distension for the past two days. Overnight, the pain got increasingly worse, so she decided to come to the emergency room for evaluation. Around 2010, she was admitted, did not have any nasogastric (NG) tube placed and it resolved its own within a day or two. No other problems since then. She does have history of multiple abdominal surgeries including hiatal hernia repair, Jocelin fundoplication, rectocele repair, appendectomy and total abdominal hysterectomy. No surgeries for hernias or for bowel obstruction. She does have irritable bowel syndrome and her bowel movements are multiple times a day to once every couple days. Her last bowel movement about two days ago. She has been continuing to pass gas, claims that she has been passing gas overnight and into this morning as well. NG tube was placed in the emergency room, had large amounts of air removed, minimal fluid, but she does feel significantly improved. Denies any nausea, vomiting. No abdominal pains now. She did have nausea prior to admission but no vomiting, likely secondary to her hiatal hernia repair and fundoplication. PAST MEDICAL HISTORY: 1. Lymphocytic lymphoma. 2. Hiatal hernia. 3. Diabetes. 4. Morbid obesity. 5. Hypertension. 6. Irritable bowel syndrome. 7. Fibromyalgia. 8. Iron-deficient anemia. PAST SURGICAL HISTORY: 1. Tonsillectomy. 2. Carpal tunnel repair. 3. (C) section. 4. Appendectomy. 5. Total abdominal hysterectomy with bilateral salpingo-oophorectomy. 6. Jocelin fundoplication. 7. Esophageal dilatation. 8. Rectocele repair. 9. Mastoidectomy. 10. Cochlear implant. ALLERGIES: QUINOLONES, HYDROCODONE, TETRACYLINE. HOME MEDICATIONS: Please see medical records. FAMILY HISTORY: Noncontributory. SOCIAL HISTORY: Denies drug, alcohol or tobacco abuse. REVIEW OF SYSTEMS: Pertinent positives and negative as stated in the history of present illness (HPI). PHYSICAL EXAMINATION: GENERAL: Patient alert and oriented times three, in no acute distress. VITAL SIGNS: Temperature 98.6, pulse 103, respirations 20, blood pressure 143/86, pulse oximetry 95% room air. HEENT: Pupils equal, round, react to light and accommodation. HEART: S1, S2. Regular rate and rhythm. LUNGS: Clear to auscultation bilaterally. ABDOMEN: Soft, slightly distended and nontender. Bowel sounds are positive. No signs of a ventral hernias. EXTREMITIES: No clubbing, cyanosis or edema. LABORATORY DATA: White count 9.8, hemoglobin 13.8, platelets 161. Potassium 4.3, creatinine 1.06, lactic acid 1.5. IMAGING STUDIES: CT abdomen and pelvis shows multiple dilated small bowel loops, up to 5.5 cm with dilatation of the stomach and duodenum with nondilated distal small bowels. No sudden transition points identified. Findings suggestive of small bowel obstruction, partial versus complete ASSESSMENT AND PLAN: The patient is a 68-year-old female with a history of multiple abdominal surgeries presenting with partial versus complete bowel obstruction. Recommendation at this time is to continue with NG tube, decompression. Also recommend ambulation and movement. Her abdomen was showing signs of improvement already and she is passing gas. I had to explain to her that we will continue on this course for the next 40-72 hours. If she continues to improve and show signs of passing gas and possibly a bowel movement, we will clamp the tube advance her diet. However, if this gets worse or does not improve after 72 hours, then we will discuss diagnostic laparoscopy.
[2019-09-01 22:00] VITALS: BP 152/82
[2019-09-02] MEDS: LR 1,000 ML IV SCH ×2 (00:28→08:14)
[2019-09-02 06:00] VITALS: BP 160/98
[2019-09-02 06:12] LABS: BASO % 0.6 % (0.0-1.0); EOS # 0.2 10^3/uL (0.0-0.5); EOS % 3.1 % (0.0-3.0); HEMATOCRIT 36.5 % (36.0-47.0); LYMPH # 3.5 10^3/uL (1.5-5.0); LYMPH % 54.7 % (24.0-44.0); MEAN CORPUSCULAR HGB CONC 32.9 g/dl (32.0-36.5); MEAN CORPUSCULAR VOLUME 91.3 fl (80.0-96.0); MONO # 0.4 10^3/uL (0.0-0.8); MONO % 6.8 % (0.0-5.0); NEUTROPHILS # 2.2 10^3/uL (1.5-8.5); NEUTROPHILS % 34.2 % (36.0-66.0); PLATELET COUNT, AUTOMATED 146 10^3/uL (150-450); WHITE BLOOD COUNT 6.5 10^3/uL (4.0-10.0)
[2019-09-02 06:42] LABS: BLOOD UREA NITROGEN 15 MG/DL (7-18); CALCIUM LEVEL 8.4 MG/DL (8.8-10.2); CARBON DIOXIDE LEVEL 25 MEQ/L (21-32); CHLORIDE LEVEL 109 MEQ/L (98-107); GLOMERULAR FILTRATION RATE > 60.0 (>45); GLUCOSE, FASTING 132 MG/DL (70-100); MAGNESIUM LEVEL 1.9 MG/DL (1.8-2.4); POTASSIUM SERUM 3.9 MEQ/L (3.5-5.1); SODIUM LEVEL 141 MEQ/L (136-145)
[2019-09-02] MEDS: amLODIPine 5 MG TAB PO SCH (06:42)
[2019-09-02] MEDS: HEPARIN SOD (PORCINE) 5000 UNITS/ML VIAL SC SCH ×2 (08:04→21:40)
[2019-09-02] MEDS: PANTOPRAZOLE 40MG INJ (PROTONIX) (C9113) IV SCH (08:04)
[2019-09-02 10:10] LABS: HEMOGLOBIN A1c 8.2 %
[2019-09-02 14:00] VITALS: BP 138/72
[2019-09-02] MEDS ORDERED: ACETAMINOPHEN 650MG ER TAB (TYLENOL ARTHRITIS) PO PRN (20:00)
--- NOTE | 2019-09-02 20:54 | IPNPDOC ---
Text Note Date of Service The patient was seen on 09/02/19. NOTE S: Pt examined at bedside. States she's feeling much better. Tolerating clear liquids well, NG tube was clamped this morning. Passing gas, and having multiple soft formed bowel movements. Denies melena hematochezia. Appetite is improving. No abdominal pain this a.m., and ambulating in the room. PE: Vitals: see below General: NAD, A&Ox3, resting comfortably HEENT: NCAT, EOMI, anicteric sclera, MMM. NGT clamped CV: RRR, no murmurs or clicks or rub. No edema RESP: CTAB, no w/r/r/ ABD: soft, mildly tender in right mid quadrant, ND. No r/g/r. Benign EXTREMITIES: 2+ radial pulses b/l, able to move all extremities NEURO: no focal deficits or acute changes A/P: 1. Small bowel obstruction: Is improving. NG tube clips morning, tolerating diet well and is having soft bowel movements. Per surgeon, advanced diet as tolerated and may take NG tube. Continue monitoring. Will DC IV fluids when tolerating diet. Likely DC tomorrow if she tolerates solid food well. 2. Hyperglycemia: A1c is 8.2. Will address this with patient tomorrow and likely need to be put on a diabetic regimen. For the remainder of her chronic problems, no changes to her regimen made. DVT ppx: Heparin SC DISPO: Monitor by mouth intake. Likely DC home tomorrow. VS,Fishbone, I+O VS, Fishbone, I+O Laboratory Tests 09/02/19 05:50 Vital Signs Date Time Temp Pulse Resp B/P (MAP) Pulse Ox O2 Delivery O2 Flow Rate FiO2 09/02/19 14:00 97.0 93 16 138/72 (94) 96 Room Air 09/01/19 06:46 2.0 I&O- Last 24 Hours up to 6 AM 09/02/19 06:00 Intake Total 3656 ml Output Total 1825 ml Balance 1831 ml GME ATTESTATION GME ATTESTATION My faculty preceptor for this patient encounter was physically present during the encounter and was fully available. All aspects of the patient interview, examination, medical decision making process, and medical care plan development were reviewed and approved by the faculty preceptor. The faculty preceptor is aware and concurs with the plan as stated in the body of this note and will attest to such by his/her cosignature. KEVON DAVSI DO Sep 02, 2019 20:54
[2019-09-02 22:00] VITALS: BP 142/82
[2019-09-03 06:00] VITALS: BP 156/82
[2019-09-03 06:21] LABS: BASO # 0.1 10^3/uL (0.0-0.2); BASO % 0.7 % (0.0-1.0); EOS # 0.2 10^3/uL (0.0-0.5); EOS % 2.8 % (0.0-3.0); HEMATOCRIT 37.4 % (36.0-47.0); HEMOGLOBIN 12.7 g/dl (12.0-15.5); LYMPH # 3.6 10^3/uL (1.5-5.0); MEAN CORPUSCULAR VOLUME 88.2 fl (80.0-96.0); MONO # 0.4 10^3/uL (0.0-0.8); MONO % 6.3 % (0.0-5.0); NEUTROPHILS # 2.7 10^3/uL (1.5-8.5); NEUTROPHILS % 38.2 % (36.0-66.0); PLATELET COUNT, AUTOMATED 167 10^3/uL (150-450); RED BLOOD COUNT 4.24 10^6/uL (4.00-5.40)
[2019-09-03 06:46] LABS: BLOOD UREA NITROGEN 7 MG/DL (7-18); CALCIUM LEVEL 8.9 MG/DL (8.8-10.2); CARBON DIOXIDE LEVEL 27 MEQ/L (21-32); CHLORIDE LEVEL 107 MEQ/L (98-107); GLOMERULAR FILTRATION RATE > 60.0 (>45); GLUCOSE, FASTING 145 MG/DL (70-100); POTASSIUM SERUM 3.8 MEQ/L (3.5-5.1); SODIUM LEVEL 141 MEQ/L (136-145)
[2019-09-03] MEDS: amLODIPine 5 MG TAB PO SCH (08:25)
[2019-09-03] MEDS: PANTOPRAZOLE 40MG INJ (PROTONIX) (C9113) IV SCH (08:26)
[2019-09-03] MEDS: HEPARIN SOD (PORCINE) 5000 UNITS/ML VIAL SC SCH (08:26)
--- NOTE | 2019-09-03 08:56 | IPNPDOC ---
Text Note Date of Service The patient was seen on 09/02/19. NOTE No acute events overnight. She had 2 BMs, and NG output is minimal. No abd pa ins, nausea, emesis, or fevers. VSSAF NAD abd - soft, nt, nd A) 68y/o female with SBO that has resolved P) clamp NGT clq diet ambulate will d/c NG this afternoon if she is tolerating it clamped Sherif Hooker DO VS,Fishbone, I+O VS, Fishbone, I+O Laboratory Tests 09/03/19 05:44 Vital Signs Date Time Temp Pulse Resp B/P (MAP) Pulse Ox O2 Delivery O2 Flow Rate FiO2 09/03/19 06:00 98.6 87 16 156/82 (106) 98 Room Air 09/01/19 06:46 2.0 I&O- Last 24 Hours up to 6 AM 09/03/19 05:59 Intake Total 4083 ml Output Total 4825 ml Balance -742 ml RONAK HOOKER DO Sep 03, 2019 08:56
--- NOTE | 2019-09-03 08:57 | IPNPDOC ---
Text Note Date of Service The patient was seen on 09/03/19. NOTE No acute events overnight. She had another BM, and is passing flatus. Tolerating diet with the NGT out. No abd pains, nausea, emesis, or fevers. VSSAF NAD abd - soft, nt, nd A) 68y/o female with SBO that has resolved P) reg diet ambulate stable for dc from surgical standpoint. Sherif Hooker DO VS,Lissy, I+O VS, Lissy, I+O Laboratory Tests 09/03/19 05:44 Vital Signs Date Time Temp Pulse Resp B/P (MAP) Pulse Ox O2 Delivery O2 Flow Rate FiO2 09/03/19 06:00 98.6 87 16 156/82 (106) 98 Room Air 09/01/19 06:46 2.0 I&O- Last 24 Hours up to 6 AM 09/03/19 05:59 Intake Total 4083 ml Output Total 4825 ml Balance -742 ml RONAK HOOKER DO Sep 03, 2019 08:57
[2019-09-03 10:00] VITALS: BP 144/88
--- NOTE | 2019-09-03 10:07 | DSES ---
DATE OF ADMISSION: 09/01/2019 DATE OF DISCHARGE: 09/03/2019 My preceptor for this encounter is Dr. Orta. DISCHARGE DIAGNOSES: 1. Small bowel obstruction. 2. Hyperglycemia. CONSULTANTS: Jerry Hooker DO from surgery. HOSPITAL COURSE: This is a 68-year-old female, who presented to the emergency department on 09/01/2019 having increasing abdominal distension over the prior 2 dates. She does have a history of bowel obstruction in the past. Her pain had gotten worse over night, so she decided to go the emergency room for evaluation. Her last bowel movement had been 2 days prior, but she had been able to pass gas. Nasogastric (NG) tube was placed in the emergency room and she had large amounts of air removed with minimal fluid. She has had a significant amount of abdominal surgeries including hiatal hernia repair and Jocelin fundoplication, rectocele repair, appendectomy, and total abdominal hysterectomy. CT of the abdomen and pelvis showed multiple dilated small bowel loops up to 5.5 cm with dilatation of the stomach and duodenum with nondilated distal small bowels, there were no sudden transition points identified. The findings were suggestive of small bowel obstruction partial versus complete. It was thought that her lipase was elevated due to the small bowel obstruction. She was admitted with nasal tube decompression as well as intravenous (IV) fluids, Zofran and morphine for pain control. She progressed well and was able to advance her diet. She was felt stable to be discharged on 09/03/2019. PHYSICAL: Vital Signs: Temperature 98.6, pulse 87 and regular, respiratory rate 16, blood pressure 156/82, pulse oximetry is 98% on room air. General: This is a morbidly obese, elderly female, in no acute distress. HEENT: Atraumatic, normocephalic. Sclerae are anicteric. Mucous membranes are moist. Conjunctivae are without pallor. Neck: Supple, no jugular venous distention. No masses. No rigidity. Lungs: Clear to auscultation bilaterally. No wheezes, rhonchi, or rales. Heart: Regular rate and rhythm. No murmurs, gallops, or rubs. Abdomen: Obese. Nondistended. Normoactive bowel sounds in all four quadrants. Minimal discomfort to palpation. Extremities: No lower extremity edema, clubbing, or cyanosis. Neurologic: Muscle strength 5/5 bilaterally in all four extremities. Sensation intact. Cranial nerves II-XII intact without deficits. Psychiatric: Answers questions appropriately. Affect full. LABORATORY DATA: CBC: WBC 7.0, hemoglobin 12.7, hematocrit 37.4, platelets 167. Chemistry: Sodium 141, potassium 3.8, chloride 107, carbon dioxide 27, BUN 7, creatinine 0.80, fasting glucose 145. A1c done yesterday shows 8.2. IMAGING: CT abdomen and pelvis with IV contrast showed multiple dilated small bowel loops measuring up to 5.5 cm with marked dilatation of the stomach and duodenum with nondilated distal small bowel loops but no obvious sudden transition point. A bulky retroperitoneal and duglas hepatis adenopathy in addition to numerous shoddy and prominent bilateral inguinal pelvic sidewalls, diffuse mesenteric retrocrural and axillary shoddy lymph nodes (the patient does have a past medical history significant for chronic lymphocytic leukemia (CLL)/small lymphocytic lymphoma in remission), as well as fatty infiltration of the liver and right middle lobe and lingular nodules measuring up to 6-7 mm in diameter. DISCHARGE MEDICATIONS: Acetaminophen with codeine #3 one tab by mouth daily at bedtime when necessary for pain Amlodipine 5 mg by mouth daily Vitamin D3 2000 units by mouth daily Vitamin B12 500 mcg sublingual daily Dicyclomine 10 mg by mouth twice a day Lomotil 2.5-0.025 mg tablet 1 tab by mouth 4 times a day when necessary diarrhea Furosemide 20 mg by mouth daily Gabapentin 300 mg by mouth 3 times a day Naproxen 500 mg by mouth twice a day Omeprazole 40 mg by mouth twice a day Tolterodine tartrate 4 mg by mouth daily DIET: As tolerated. ACTIVITY: As tolerated. FOLLOWUP: With primary care provider ROGER Dyer in 1-[address] Hooker of General Surgery as needed, followup is not indicated at this time unless the patient's abdominal pain persist. Also recommend following up the patient's hyperglycemia as she may need outpatient diabetes education and treatment. Time spent on discharge of 35 minutes I, Lashon Orta, have independently examined this patient and performed my own physical exam, as well as reviewed the documentation and edited where necessary. I have discussed in detail with the resident / student the findings and plan of treatment as documented by the resident / student and edited their note. I agree with their findings and treatment plan and have edited their documentation. I will continue to follow the patient during this hospital stay. Time spent on discharge 35 minutes KENNY
== END 2019-09-03 11:38 | disposition home or self-care (01) | DRG 389 ==
LOC: M ED 02:39 → M ED INP 06:09 → M MSPAV 08:49
PROVIDERS: ADMIT Internal Medicine Nephrology; ATTEND Internal Medicine
DX: K56.51 Intestinal adhesions [bands], with partial obstruction (principal); Z68.42 Body mass index [BMI] 45.0-49.9, adult; C91.91 Lymphoid leukemia, unspecified, in remission; K44.9 Diaphragmatic hernia without obstruction or gangrene; E11.65 Type 2 diabetes mellitus with hyperglycemia; E66.01 Morbid (severe) obesity due to excess calories; I10 Essential (primary) hypertension; K58.9 Irritable bowel syndrome, unspecified; M79.7 Fibromyalgia; D50.9 Iron deficiency anemia, unspecified; Z85.43 Personal history of malignant neoplasm of ovary; Z90.710 Acquired absence of both cervix and uterus; Z90.722 Acquired absence of ovaries, bilateral; K76.0 Fatty (change of) liver, not elsewhere classified; Z88.1 Allergy status to other antibiotic agents; Z88.5 Allergy status to narcotic agent; Z79.899 Other long term (current) drug therapy; Z96.21 Cochlear implant status

== ENCOUNTER → 2019-10-10 | Outpatient (REF) | payer OTHER, MEDICARE ==
[2019-10-10 19:35] LABS: ALBUMIN 4.1 GM/DL (3.2-5.2); CREATININE FOR GFR 1.15 MG/DL (0.55-1.30); GLOMERULAR FILTRATION RATE 50.1 (>45); MAGNESIUM LEVEL 2.2 MG/DL (1.8-2.4); PHOSPHORUS LEVEL 3.1 MG/DL (2.5-4.9); POTASSIUM SERUM 4.6 MEQ/L (3.5-5.1)
== END ==
LOC: M LAB REF 17:13
PROVIDERS: ATTEND Internal Medicine Nephrology
DX: N18.3 Chronic kidney disease, stage 3 (moderate) (principal)

== ENCOUNTER → 2019-12-04 | Outpatient (CLI) | payer OTHER, MEDICARE ==
[~2019-12-04] MED LIST changes: +GASTROGRAFIN SOLUTION 30ML (Q9963) As Ordered ONE; +ISOVUE-370 76% 100ML VIAL (Q9967) As Ordered ONE
--- NOTE | 2019-12-04 18:20 | REPVR ---
PROCEDURE INFORMATION: Exam: CT Chest With Contrast Exam date and time: 12/04/2019 5:22 PM Age: 69 years old Clinical indication: Condition or disease; Other: Cll; Additional info: Restaging of cll TECHNIQUE: Imaging protocol: Computed tomography of the chest with intravenous contrast. Radiation optimization: All CT scans at this facility use at least one of these dose optimization techniques: automated exposure control; mA and/or kV adjustment per patient size (includes targeted exams where dose is matched to clinical indication); or iterative reconstruction. Contrast material: ISOVUE 370; Contrast volume: 100 ml; Contrast route: IV; COMPARISON: CT Chest with contrast 12/29/2017 10:12 AM FINDINGS: Lungs: Pulmonary vascular/interstitial pattern does not suggest active pulmonary edema. No suspicious lung mass or air space process. No central endobronchial lesion. Pleural space: No pleural effusion or pneumothorax. Heart: No overt cardiac enlargement or abnormal volume of pericardial fluid. Mediastinum: Residual thymic tissue is present in the anterior mediastinum. Aorta: No thoracic aortic aneurysm or dissection. Lymph nodes: Miniscule mediastinal nodes, unchanged, the largest right paratracheal at 5 mm. No hilar adenopathy. Small axillary nodes measure up to 11 mm short axis, axial image 23, with smaller nodes in the left axilla. Bones/joints: Bony structures show no acute fracture or destructive process. IMPRESSION: 1. Stable small right paratracheal mediastinal lymph nodes. No enlarging mediastinal or hilar adenopathy. 2. Small bilateral axillary lymph nodes measuring up to 11 mm short axis, slightly more prominent than on the prior CT.. 3. No other thoracic abnormality Electronically signed by: Tyler Hu On 12/04/2019 18:20:30 PM
--- NOTE | 2019-12-04 18:26 | REPVR ---
PROCEDURE INFORMATION: Exam: CT Abdomen And Pelvis With Contrast Exam date and time: 12/04/2019 5:22 PM Age: 69 years old Clinical indication: Condition or disease; Cancer; Other: Cll; Additional info: Restaging of cll TECHNIQUE: Imaging protocol: Computed tomography of the abdomen and pelvis with intravenous contrast. Radiation optimization: All CT scans at this facility use at least one of these dose optimization techniques: automated exposure control; mA and/or kV adjustment per patient size (includes targeted exams where dose is matched to clinical indication); or iterative reconstruction. Contrast material: ISOVUE 370; Contrast volume: 100 ml; Contrast route: IV; COMPARISON: CT ABD/PEL W/IV CONTRAST ONLY 09/01/2019 4:27 AM FINDINGS: Liver: Liver appears normal with no focal abnormality. Gallbladder and bile ducts: Gallbladder is present and shows no evidence of gallstone. Pancreas: Pancreas appears normal. No focal mass or peripancreatic inflammation. Spleen: Spleen appears homogeneous without focal mass. Adrenals: Adrenal glands are normal in appearance. Kidneys and ureters: Kidneys are unremarkable aside from a nonobstructing midpole left renal stone. Stomach and bowel: No evidence of small bowel obstruction. No evidence of acute diverticulitis. Appendix: Appendix is not seen. No RLQ inflammation to suggest appendicitis. Intraperitoneal space: No pneumoperitoneum. Vasculature: Atherosclerotic change present in the aorta, without aneurysm. Main portal and splenic veins enhance normally. Lymph nodes: Upper abdominal abdominal lymphadenopathy present and more prominent in appearance compared to the prior CT. Retroperitoneal lymphadenopathy is increased in size slightly since the prior CT. A left periaortic node at the level of the kidneys measures 5 x 3 cm on axial image 69 compared to 4.2 x 2.5 cm on the prior CT. Right retroperitoneal node at the level of the iliac bifurcation now measures 18 mm, compared to 13 mm on the prior exam, current exam image 94 Pelvic sidewall lymphadenopathy is unchanged. Small mesenteric and RLQ lymph nodes are similar to the prior CT. Bladder: Urinary bladder appears normal. Reproductive: Uterus is surgically absent. Bones/joints: Bony structures are normal except for lumbar spine degenerative disc changes. Soft tissues: Unremarkable. IMPRESSION: Diffuse upper abdominal lymphadenopathy which appears perhaps slightly progressive compared to the prior CT. Periaortic and pericaval nodes with measurements are given above. Electronically signed by: Tyler Hu On 12/04/2019 18:26:01 PM
== END ==
LOC: M RAD 15:41
PROVIDERS: ATTEND Internal Medicine Hematology
DX: C91.10 Chronic lymphocytic leukemia of B-cell type not having achieved remission (principal); R59.0 Localized enlarged lymph nodes
CPT/HCPCS: 71260; 74177; Q9963; Q9967

== ENCOUNTER → 2019-12-05 | Outpatient (CLI) | payer OTHER, MEDICARE ==
[~2019-12-05] MED LIST changes: -GASTROGRAFIN SOLUTION 30ML (Q9963) As Ordered ONE; -ISOVUE-370 76% 100ML VIAL (Q9967) As Ordered ONE
--- NOTE | 2019-12-05 17:49 | REPVR ---
PROCEDURE INFORMATION: Exam: US Duplex Lower Extremity Veins Exam date and time: 12/05/2019 5:04 PM Age: 69 years old Clinical indication: Pain; Leg, upper and leg, lower; Bilateral; Additional info: Bi leg pain, R/O dvt TECHNIQUE: Imaging protocol: Real-time duplex ultrasound of the Lower Extremities with 2-D robledo scale, color Doppler flow and spectral waveform analysis with image documentation. Complete exam focused on the bilateral lower extremity veins. COMPARISON: US Duplex, Ext,LOWER veins,unilat 01/07/2019 4:40 PM FINDINGS: Right deep veins: Unremarkable. The common femoral, femoral and popliteal veins are patent without thrombus. Normal Doppler waveforms. Normal compressibility and/or augmentation response. Right superficial veins: Saphenofemoral junction is patent without thrombus. Left deep veins: Unremarkable. The common femoral, femoral and popliteal veins are patent without thrombus. Normal Doppler waveforms. Normal compressibility and/or augmentation response. Left superficial veins: Saphenofemoral junction is patent without thrombus. Soft tissues: 4 x 1.7 x 2.6 cm mildly complex right popliteal cyst. 7.1 x 2.3 x 1.2 cm complex left popliteal cyst. IMPRESSION: 1. No sonographic evidence of deep vein thrombosis. 2. Complex bilateral popliteal cysts. Electronically signed by: Kalia Avalos On 12/05/2019 17:49:16 PM
== END ==
LOC: M RAD 16:49
PROVIDERS: ATTEND Internal Medicine Hematology
DX: M79.661 Pain in right lower leg (principal); M79.662 Pain in left lower leg; M71.21 Synovial cyst of popliteal space [Baker], right knee; M71.22 Synovial cyst of popliteal space [Baker], left knee

== ENCOUNTER → 2019-12-17 | Outpatient (CLI) | payer OTHER, MEDICARE ==
[~2019-12-17] MED LIST changes: +ALLO100T PO; +LEUK2TAB8 NG; +PROHANCE 279.3MG/ML 15ML VIAL (A9576) As Ordered ONE; +PROHANCE 279.3MG/ML 5ML VIAL (A9576) As Ordered ONE
--- NOTE | 2019-12-17 19:46 | REPVR ---
PROCEDURE INFORMATION: Exam: MR Lumbar Spine Without and With Contrast. Exam date and time: 12/17/2019 5:38 PM Age: 69 years old Clinical indication: Low back pain; Additional info: Assess for spinal stenosis TECHNIQUE: Imaging protocol: Multiplanar magnetic resonance images of the lumbar spine without and with intravenous contrast. Contrast material: PROHANCE; Contrast volume: 20 ml; Contrast route: 22G; COMPARISON: No relevant prior studies available. FINDINGS: Mild retrolisthesis of L1 on L2, L2 on L3 and L3 on L4. Vertebral body heights are preserved. Multilevel disc desiccation and disc space narrowing. There is degenerative endplate signal. No evidence of discitis/osteomyelitis. Conus medullaris terminates at T12-L1. No epidural fluid collection. No pathologic intrathecal enhancement. There is extensive retroperitoneal lymphadenopathy. L1-L2: Mild disc bulge with superimposed small central protrusion. Mild bilateral facet joint arthropathy. No significant central or foraminal stenosis. L2-L3: Moderate disc bulge with qqxl-dl-ncsuqfnj facet joint arthropathy. There is eviv-bs-wbvkdmtu central canal stenosis, moderate right foraminal stenosis and yeld-lq-kvsaibtv left foraminal stenosis. L3-L4: Mild to moderate disc bulge with ocxf-hg-pkwnkrmn facet joint arthropathy and posterior laxity of ligamentum flavum. Borderline central canal stenosis. There is myyq-ry-rebueyts bilateral foraminal stenosis. L4-L5: Mild disc osteophyte complex eccentric towards the left side with left greater than right facet joint arthropathy. No significant central canal stenosis. There is mild right and moderate left foraminal stenosis. L5-S1: Ehhw-xy-ntgzujvn disc bulge with bilateral facet joint arthropathy. No significant central canal stenosis. Moderate to severe right and moderate left foraminal stenosis. IMPRESSION: 1. Extensive retroperitoneal lymphadenopathy. 2. Tmfx-xk-wxxlclew central canal stenosis at L2-L3 and borderline central canal stenosis at L3-L4. 3. Multilevel foraminal stenosis as above. Electronically signed by: Trenton Salguero On 12/17/2019 19:46:03 PM
== END ==
LOC: M RAD 15:50
PROVIDERS: ATTEND Internal Medicine Hematology
DX: C91.90 Lymphoid leukemia, unspecified not having achieved remission (principal)
CPT/HCPCS: 72158; A9576

== ENCOUNTER → 2020-02-12 | Outpatient (CLI) | payer OTHER, MEDICARE ==
[~2020-02-12] MED LIST changes: +NITR-67 PO; -PROHANCE 279.3MG/ML 15ML VIAL (A9576) As Ordered ONE; -PROHANCE 279.3MG/ML 5ML VIAL (A9576) As Ordered ONE
[2020-02-12 11:24] LABS: BASO # 0.1 10^3/uL (0.0-0.2); BASO % 0.1 % (0.0-1.0); EOS # 0.2 10^3/uL (0.0-0.5); EOS % 0.4 % (0.0-3.0); HEMATOCRIT 36.9 % (36.0-47.0); HEMOGLOBIN 11.8 g/dl (12.0-15.5); LYMPH # 52.3 10^3/uL (1.5-5.0); LYMPH % 89.3 % (24.0-44.0); MEAN CORPUSCULAR HEMOGLOBIN 29.9 pg (27.0-33.0); MEAN CORPUSCULAR VOLUME 93.4 fl (80.0-96.0); MONO # 0.6 10^3/uL (0.0-0.8); MONO % 1.1 % (0.0-5.0); NEUTROPHILS # 5.1 10^3/uL (1.5-8.5); NEUTROPHILS % 8.7 % (36.0-66.0); PLATELET COUNT, AUTOMATED 141 10^3/uL (150-450); RED BLOOD COUNT 3.95 10^6/uL (4.00-5.40)
[2020-02-12 11:27] LABS: WHITE BLOOD COUNT 58.6 10^3/uL (4.0-10.0)
[2020-02-12 12:48] LABS: ALBUMIN 3.5 GM/DL (3.2-5.2); ALT/SGPT 15 U/L (12-78); BILIRUBIN,TOTAL 0.4 MG/DL (0.2-1.0); BLOOD UREA NITROGEN 14 MG/DL (7-18); CALCIUM LEVEL 9.1 MG/DL (8.8-10.2); CARBON DIOXIDE LEVEL 29 MEQ/L (21-32); CHLORIDE LEVEL 110 MEQ/L (98-107); CREATININE FOR GFR 0.85 MG/DL (0.55-1.30); GLOMERULAR FILTRATION RATE > 60.0 (>45); GLUCOSE, FASTING 163 MG/DL (70-100); IMMUNOGLOBULIN A 66.7 MG/DL (70-400); IMMUNOGLOBULIN G 360 MG/DL (681-1648); IMMUNOGLOBULIN M 5.6 MG/DL (40-230); POTASSIUM SERUM 4.2 MEQ/L (3.5-5.1); SODIUM LEVEL 143 MEQ/L (136-145)
== END ==
LOC: M LAB 10:39
PROVIDERS: ATTEND Internal Medicine Hematology
DX: C91.10 Chronic lymphocytic leukemia of B-cell type not having achieved remission (principal)

== ENCOUNTER → 2020-03-19 | Outpatient (CLI) | payer OTHER, MEDICARE ==
[~2020-03-19] MED LIST changes: +AMLO1TAB24 PO; -AMLO5TAB6 PO; +CIPR-250 PO; +ENAL5TA PO; -ENAL5TAB PO; +GABA-282 PO; -GABA-843 PO; +[UNRECOGNIZED DRUG - CODE] SL
[2020-03-19 11:24] LABS: BASO # 0.2 10^3/uL (0.0-0.2); BASO % 0.2 % (0.0-1.0); EOS # 0.4 10^3/uL (0.0-0.5); EOS % 0.4 % (0.0-3.0); HEMATOCRIT 38.4 % (36.0-47.0); HEMOGLOBIN 11.6 g/dl (12.0-15.5); LYMPH # 78.2 10^3/uL (1.5-5.0); LYMPH % 89.1 % (24.0-44.0); MEAN CORPUSCULAR HEMOGLOBIN 28.6 pg (27.0-33.0); MEAN CORPUSCULAR HGB CONC 30.2 g/dl (32.0-36.5); MEAN CORPUSCULAR VOLUME 94.8 fl (80.0-96.0); MONO # 0.7 10^3/uL (0.0-0.8); MONO % 0.8 % (0.0-5.0); NEUTROPHILS % 9.2 % (36.0-66.0); PLATELET COUNT, AUTOMATED 159 10^3/uL (150-450); RED BLOOD COUNT 4.05 10^6/uL (4.00-5.40)
[2020-03-19 11:29] LABS: WHITE BLOOD COUNT 87.7 10^3/uL (4.0-10.0)
[2020-03-19 12:22] LABS: ALBUMIN 3.7 GM/DL (3.2-5.2); ALT/SGPT 12 U/L (12-78); BILIRUBIN,TOTAL 0.4 MG/DL (0.2-1.0); BLOOD UREA NITROGEN 18 MG/DL (7-18); CARBON DIOXIDE LEVEL 28 MEQ/L (21-32); CHLORIDE LEVEL 108 MEQ/L (98-107); CREATININE FOR GFR 0.91 MG/DL (0.55-1.30); GLOMERULAR FILTRATION RATE > 60.0 (>45); GLUCOSE, FASTING 175 MG/DL (70-100); POTASSIUM SERUM 4.3 MEQ/L (3.5-5.1); SODIUM LEVEL 142 MEQ/L (136-145); TOTAL PROTEIN 6.3 GM/DL (6.4-8.2)
== END ==
LOC: M LAB 10:55
PROVIDERS: ATTEND Internal Medicine Medical Oncology
DX: C91.10 Chronic lymphocytic leukemia of B-cell type not having achieved remission (principal)

== ENCOUNTER → 2020-04-14 | Outpatient (CLI) | payer OTHER, MEDICARE ==
[~2020-04-14] MED LIST changes: -GABA-282 PO; +GABA-843 PO; -[UNRECOGNIZED DRUG - CODE] SL
[2020-04-14 13:00] LABS: BASO # 0.1 10^3/uL (0.0-0.2); BASO % 0.1 % (0.0-1.0); EOS # 0.4 10^3/uL (0.0-0.5); EOS % 0.4 % (0.0-3.0); HEMATOCRIT 40.6 % (36.0-47.0); HEMOGLOBIN 12.2 g/dl (12.0-15.5); LYMPH # 77.6 10^3/uL (1.5-5.0); LYMPH % 90.7 % (24.0-44.0); MEAN CORPUSCULAR HEMOGLOBIN 28.2 pg (27.0-33.0); MEAN CORPUSCULAR VOLUME 93.8 fl (80.0-96.0); MONO # 0.8 10^3/uL (0.0-0.8); NEUTROPHILS # 6.4 10^3/uL (1.5-8.5); NEUTROPHILS % 7.4 % (36.0-66.0); PLATELET COUNT, AUTOMATED 183 10^3/uL (150-450); RED BLOOD COUNT 4.33 10^6/uL (4.00-5.40); WHITE BLOOD COUNT 85.5 10^3/uL (4.0-10.0)
[2020-04-14 13:23] LABS: ALBUMIN 3.6 GM/DL (3.2-5.2); ALT/SGPT 14 U/L (12-78); BILIRUBIN,TOTAL 0.3 MG/DL (0.2-1.0); BLOOD UREA NITROGEN 18 MG/DL (7-18); CALCIUM LEVEL 9.1 MG/DL (8.8-10.2); CARBON DIOXIDE LEVEL 29 MEQ/L (21-32); CHLORIDE LEVEL 104 MEQ/L (98-107); CREATININE FOR GFR 0.93 MG/DL (0.55-1.30); FERRITIN 156 NG/ML (8-252); GLOMERULAR FILTRATION RATE > 60.0 (>45); GLUCOSE, FASTING 190 MG/DL (70-100); IRON (FE) 54 UG/DL (50-170); PERCENT SATURATION 18.5 % (13.2-45.0); POTASSIUM SERUM 4.3 MEQ/L (3.5-5.1); SODIUM LEVEL 140 MEQ/L (136-145); TOTAL IRON BINDING CAPACITY 292 UG/DL (250-450); TOTAL PROTEIN 6.4 GM/DL (6.4-8.2)
== END ==
LOC: M LAB 12:09
PROVIDERS: ATTEND Internal Medicine Medical Oncology
DX: C91.10 Chronic lymphocytic leukemia of B-cell type not having achieved remission (principal)

== ENCOUNTER → 2020-05-13 | Outpatient (CLI) | payer OTHER, MEDICARE ==
[~2020-05-13] MED LIST changes: +GASTROGRAFIN SOLUTION 30ML (Q9963) As Ordered ONE; +ISOVUE-370 76% 100ML VIAL As Ordered ONE
--- NOTE | 2020-06-26 13:49 | REP ---
CHEST CT WITH IV CONTRAST This report is delayed due to a malware attack at this facility. COMPARISON: Chest CT study 12/04/2019. CT CONTRAST DOSE: 100 mL of intravenous Isovue-[address] FINDINGS: Preliminary digital carver hand radiograph is unremarkable. There is no evidence of pleural or pericardial effusion. No filling defect is seen in the pulmonary arterial tree. There is no evidence of aortic aneurysm or dissection. No hilar or mediastinal mass or adenopathy is seen. The small right paratracheal lymph nodes and pretracheal lymph nodes seen on the 12/04/2019 are not apparent today. There is one pretracheal lymph node visible in the mediastinum measuring 6 mm. Normal adrenal glands are seen. There are surgical changes at the gastroesophageal junction. No bony destructive lesion is appreciated. There are multiple pleural-based subcentimeter nodules again noted bilaterally. These appear somewhat smaller than 12/04/2019 prior study. No definite new nodule is appreciated. IMPRESSION: No evidence of progressive mass or adenopathy. Multiple small peripheral nodules either unchanged or somewhat improved in size. Previously noted normal size lymph nodes have regressed since the most recent prior study of 12/04/2019. No extrathoracic mass or adenopathy is seen. MTDD
== END ==
LOC: M RAD 14:37
PROVIDERS: ATTEND Internal Medicine Medical Oncology
DX: C91.10 Chronic lymphocytic leukemia of B-cell type not having achieved remission (principal)
CPT/HCPCS: 71260; 74177; Q9963; Q9967

== ENCOUNTER → 2020-05-22 | Outpatient (CLI) | payer OTHER, MEDICARE ==
[~2020-05-22] MED LIST changes: -GASTROGRAFIN SOLUTION 30ML (Q9963) As Ordered ONE; -ISOVUE-370 76% 100ML VIAL As Ordered ONE
--- NOTE | 2020-05-22 14:24 | REPVR ---
PROCEDURE INFORMATION: Exam: US Duplex Right Lower Extremity Veins, Limited Exam date and time: 05/22/2020 2:05 PM Age: 69 years old Clinical indication: Pain; Leg, lower; Right; Additional info: Pain in RT calf R/O dvt TECHNIQUE: Imaging protocol: Real-time Duplex ultrasound of the Right Lower Extremity with 2-D robledo scale, color Doppler flow and spectral waveform analysis with image documentation. Limited exam was focused on the right lower extremity veins. COMPARISON: US Duplex, Ext LOWER veins, bilat BILATERAL 12/05/2019 5:05 PM FINDINGS: Right deep veins: Unremarkable. The common femoral, femoral, proximal profunda femoral and popliteal veins are patent without thrombus. Normal Doppler waveforms. Normal compressibility and/or augmentation response. Right superficial veins: Unremarkable. Saphenofemoral junction is patent without thrombus. Soft tissues: A mildly complex right popliteal cyst is 4.7 x 2.6 x 1.8 cm (previously 4.0 x 2.6 x 1.7 cm). IMPRESSION: No sonographic evidence of deep vein thrombosis in the right lower extremity. A mildly complex right popliteal cyst is 4.7 x 2.6 x 1.8 cm (previously 4.0 x 2.6 x 1.7 cm). Electronically signed by: Asad Webster On 05/22/2020 14:24:48 PM
== END ==
LOC: M RAD 13:48
PROVIDERS: ATTEND Internal Medicine Medical Oncology
DX: M79.604 Pain in right leg (principal); C91.10 Chronic lymphocytic leukemia of B-cell type not having achieved remission

== ENCOUNTER 2020-08-17 14:37 | Emergency (ER) | payer OTHER, MEDICARE ==
[~2020-08-17] VITALS: Ht 162.6 cm; Wt 116.9 kg
[2020-08-17 14:37] VITALS: BP 179/79
[2020-08-17 17:21] LABS: HEMATOCRIT 43.7 % (36.0-47.0); HEMOGLOBIN 13.5 g/dl (12.0-15.5); MEAN CORPUSCULAR HEMOGLOBIN 27.4 pg (27.0-33.0); MEAN CORPUSCULAR HGB CONC 30.9 g/dl (32.0-36.5); MEAN CORPUSCULAR VOLUME 88.6 fl (80.0-96.0); PLATELET COUNT, AUTOMATED 193 10^3/uL (150-450); RED BLOOD COUNT 4.93 10^6/uL (4.00-5.40); WHITE BLOOD COUNT 24.8 10^3/uL (4.0-10.0)
--- NOTE | 2020-08-17 17:26 | REP ---
INDICATION: with marker please r/o fb COMPARISON: None. TECHNIQUE: AP and lateral views left lower leg performed. FINDINGS: There is no evidence of acute fracture, dislocation, or intrinsic bone disease.There is mild to moderate spurring of the inferior calcaneus. Tiny metallic BB is seen the anterior mid king. There is a tiny calcific density in the soft tissues just superior to this likely representing a phlebolith. Another phleboliths seen in the posterior soft tissues of the mid calf. IMPRESSION: No fracture or dislocation. A few phleboliths are seen in the soft tissues of the lower leg. <Electronically signed by Jerry Reza > 08/17/20 [id number]
[2020-08-17 17:47] LABS: CALCIUM LEVEL 9.5 MG/DL (8.8-10.2); CREATININE FOR GFR 0.99 MG/DL (0.55-1.30); GLOMERULAR FILTRATION RATE 59.4 (>45); POTASSIUM SERUM 3.8 MEQ/L (3.5-5.1)
[2020-08-17 18:01] LABS: INR 0.99; PROTHROMBIN TIME 13.3 SECONDS (12.5-14.3)
== END 2020-08-17 17:54 | disposition home or self-care (01) ==
LOC: M ED 14:37
DX: D69.2 Other nonthrombocytopenic purpura (principal); E11.9 Type 2 diabetes mellitus without complications; Z85.43 Personal history of malignant neoplasm of ovary; Z79.899 Other long term (current) drug therapy; Z88.1 Allergy status to other antibiotic agents; Z88.5 Allergy status to narcotic agent; Z88.8 Allergy status to other drugs, medicaments and biological substances

== ENCOUNTER → 2021-02-26 | Outpatient (CLI) | payer OTHER, MEDICARE ==
[~2021-02-26] MED LIST changes: +GABA-282 PO; -GABA-843 PO; +ONDA4TAB6 PO; +VITAE40CA PO; +[UNRECOGNIZED DRUG - CODE] SL
--- NOTE | 2021-02-26 15:09 | REP ---
INDICATION: PAIN. COMPARISON: None. TECHNIQUE: Internal rotation, external rotation, axillary and Y-view of the right shoulder FINDINGS: Subtle mild cortical irregularity at the acromioclavicular joint. Small spur suggested along the humeral lesser tuberosity. There is subtle blunting to the calcified glenoid rim. The subacromial space is normal. No periarticular calcifications or loose bodies are identified. No acute fracture or dislocation. IMPRESSION: Mild arthritic degenerative changes. <Electronically signed by Nirmal Bansal > 02/26/21 [id number]
== END ==
LOC: M SOG 14:31
PROVIDERS: ATTEND Orthopaedic Surgery Sports Medicine
DX: M75.41 Impingement syndrome of right shoulder (principal); M19.011 Primary osteoarthritis, right shoulder

== ENCOUNTER → 2021-05-21 | Outpatient (CLI) | payer OTHER, MEDICARE ==
[~2021-05-21] MED LIST changes: +FARX1TAB3 PO; +OMEP40CA4 PO; -OMEP40CA97 PO
--- NOTE | 2021-05-21 16:19 | REPMRS ---
Patient History Patient is postmenopausal. Family history of prostate cancer at age 70 in brother, prostate cancer at age 76 in father. Benign US guided breast biopsy of the left breast, July 30, 2015. Patient states no breast complaints today. Patient has signed MRS History Sheet. Digital Woman Screen Mammo: May 21, 2021 - Exam #: [id number] Bilateral CC and MLO view(s) were taken. Technologist: Shannon Vela, Technologist Prior study comparison: March 04, 2019, bilateral digital mammo screening bilat, performed at [facility] [employer]. January 22, 2018, bilateral digital mammo screening bilat, performed at [facility]. FINDINGS: There are scattered fibroglandular densities. Screening. Digital screening (2D) mammography was performed bilaterally in the CC and MLO projections. Additionally, breast tomosynthesis (3D mammography) was performed bilaterally in the CC and MLO projections. Todays exam was compared to the prior exam/exams. By history, the patient has no complaints of a palpable breast abnormality or other significant breast complaints. The breasts are unchanged in size and shape. There are no rojelio-soft tissue densities or spiculated masses. There is no internal architectural distortion. There are no suspicious rojelio-calcific clusters. Skin thickening or nipple retraction is not present. IMPRESSION: BI-RADS Category 2- Benign Findings. There is no evidence of malignant alteration of the breasts. Followup examination recommended in one year. The Volpara volumetric breast density category is B, there are scattered areas of fibroglandular densities. This mammogram was read with the assistance of Tealeaf,an FDA approved computer aided detection system for mammography. The lifetime Tyrer-Cuzick score is 3.3% Negative x-ray reports should not delay surgical consultation if a dominant or clinically suspicious mass is present. Not all breast cancers can be identified by mammography. Therefore, we recommend that you continue to perform regular breast self-examination and physical examination and then promptly contact your physician of any concerns or changes. Adenosis and dense breasts may obscure an underlying neoplasm. Assessment: BI-RADS/ACR category 2 mammogram. Benign Findings. Recommendation Routine screening mammogram of both breasts in 1 year. Electronically Signed By: Nestor Acevedo DO 05/21/21 [id number]
== END ==
LOC: M WHC 12:34
PROVIDERS: ATTEND Nurse Practitioner Adult Health
DX: Z12.31 Encounter for screening mammogram for malignant neoplasm of breast (principal); Z80.42 Family history of malignant neoplasm of prostate

== ENCOUNTER → 2021-09-29 | Outpatient (CLI) | payer OTHER, MEDICARE ==
[~2021-09-29] MED LIST changes: +CVS1000C17 PO; +GASTROGRAFIN SOLUTION 30ML (Q9963) As Ordered ONE; +ISOVUE-370 76% 100ML VIAL As Ordered ONE; +METF-838 PO
== END ==
LOC: M RAD 11:29
PROVIDERS: ATTEND Internal Medicine Medical Oncology
DX: C91.10 Chronic lymphocytic leukemia of B-cell type not having achieved remission (principal); N20.2 Calculus of kidney with calculus of ureter; R16.0 Hepatomegaly, not elsewhere classified
CPT/HCPCS: 71260; 74177; Q9963; Q9967

== ENCOUNTER → 2022-06-09 | Outpatient (CLI) | payer OTHER, MEDICARE ==
[~2022-06-09] MED LIST changes: -ACET1TAB16 PO; +ACET300T48 PO; -CVS1000C17 PO; -GASTROGRAFIN SOLUTION 30ML (Q9963) As Ordered ONE; -ISOVUE-370 76% 100ML VIAL As Ordered ONE; +VITA-16 PO
== END ==
LOC: M SOG 09:01
PROVIDERS: ATTEND Orthopaedic Surgery
DX: M25.561 Pain in right knee (principal); M25.562 Pain in left knee; M17.0 Bilateral primary osteoarthritis of knee

== ENCOUNTER → 2022-07-20 | Outpatient (CLI) | payer OTHER, MEDICARE | LOC: M WHC 14:09 | PROVIDERS: ATTEND Nurse Practitioner Adult Health | DX: Z12.31 Encounter for screening mammogram for malignant neoplasm of breast (principal) ==

== ENCOUNTER → 2023-08-02 | Outpatient (CLI) | payer OTHER, MEDICARE ==
[~2023-08-02] MED LIST changes: +ENAL1TAB48 PO; -ENAL5TA PO
== END ==
LOC: M SOG 08:32
PROVIDERS: ATTEND Orthopaedic Surgery
DX: M25.512 Pain in left shoulder (principal); M25.511 Pain in right shoulder; M19.011 Primary osteoarthritis, right shoulder; M19.012 Primary osteoarthritis, left shoulder

== ENCOUNTER → 2023-10-18 | Outpatient (CLI) | payer OTHER, MEDICARE | LOC: M SOG 08:06 | PROVIDERS: ATTEND Orthopaedic Surgery | DX: M17.0 Bilateral primary osteoarthritis of knee (principal); Z53.9 Procedure and treatment not carried out, unspecified reason ==

== ENCOUNTER → 2023-10-26 | Outpatient (CLI) | payer OTHER, MEDICARE | LOC: M SOG 14:29 | PROVIDERS: ATTEND Orthopaedic Surgery | DX: M17.0 Bilateral primary osteoarthritis of knee (principal) ==

== ENCOUNTER → 2023-12-26 | Outpatient (REF) | payer OTHER, MEDICARE | LOC: M LAB REF 12:50 | PROVIDERS: ATTEND Nurse Practitioner Adult Health | DX: N39.0 Urinary tract infection, site not specified (principal) ==

== ENCOUNTER → 2024-03-27 | Outpatient (REF) | payer OTHER, MEDICARE ==
[~2024-03-27] MED LIST changes: +MONI2KIT PV; +ONDA-282 PO; -ONDA4TAB6 PO
== END ==
LOC: M LAB REF 16:23
PROVIDERS: ATTEND Nurse Practitioner Adult Health
DX: R35.0 Frequency of micturition (principal); R30.0 Dysuria

== ENCOUNTER → 2024-05-01 | Outpatient (REF) | payer OTHER, MEDICARE ==
[2024-05-03 15:37] LABS: HPV APTIMA Not Detected (Not Detected)
== END ==
LOC: M SFHCWAGY 12:14
PROVIDERS: ATTEND Nurse Practitioner Family
DX: Z12.4 Encounter for screening for malignant neoplasm of cervix (principal)
CPT/HCPCS: 87624; G0123

== ENCOUNTER → 2024-05-01 | Outpatient (CLI) | payer OTHER, MEDICARE | LOC: M WHC 09:00 | PROVIDERS: ATTEND Nurse Practitioner Family | DX: Z12.31 Encounter for screening mammogram for malignant neoplasm of breast (principal) ==

== ENCOUNTER → 2024-06-10 | Outpatient (CLI) | payer OTHER, MEDICARE ==
[~2024-06-10] MED LIST changes: +SEMA1PEN2 SQ
== END ==
LOC: M SOG 13:03
PROVIDERS: ATTEND Orthopaedic Surgery
DX: M25.552 Pain in left hip (principal); M54.50 Low back pain, unspecified; M16.0 Bilateral primary osteoarthritis of hip; M51.36 Other intervertebral disc degeneration, lumbar region

== ENCOUNTER → 2024-07-11 | Outpatient (CLI) | payer OTHER, MEDICARE ==
[~2024-07-11] MED LIST changes: +GABA-1172 PO; -GABA-282 PO; +LIDOCAINE 1% MDV 20ML VIAL As Ordered ONE; +NAPR-1405 PO; -NAPR500T6 PO; +methylPREDNISolone SUSP 40MG/ML 1ML VIAL (DEPO MEDROL) As Ordered ONE
== END ==
LOC: M IRPRO 13:30
PROVIDERS: ATTEND Orthopaedic Surgery
DX: M70.62 Trochanteric bursitis, left hip (principal)
CPT/HCPCS: 20611; J0665; J1010

== ENCOUNTER → 2024-08-28 | Outpatient (POV) | payer OTHER, MEDICARE ==
[~2024-08-28] MED LIST changes: +ACET-645 PO; +ENAL1TAB46 PO; +LEVO1TAB40 PO; -LIDOCAINE 1% MDV 20ML VIAL As Ordered ONE; +OMEP40CA5 PO; +TOLT4CAP3 PO; +VITA-259 PO; +VITA100054 PO; +[UNRECOGNIZED DRUG - CODE] PO; -methylPREDNISolone SUSP 40MG/ML 1ML VIAL (DEPO MEDROL) As Ordered ONE
== END ==
LOC: M IRPOV 14:47
PROVIDERS: ATTEND Radiology Diagnostic Radiology
DX: Z48.816 Encounter for surgical aftercare following surgery on the genitourinary system (principal); N20.0 Calculus of kidney; Z88.1 Allergy status to other antibiotic agents; Z88.5 Allergy status to narcotic agent
CPT/HCPCS: 74176; G0463

== ENCOUNTER → 2024-09-16 | Outpatient (CLI) | payer OTHER, MEDICARE ==
[~2024-09-16] MED LIST changes: -ACET-645 PO; -OMEP40CA5 PO; -TOLT4CAP3 PO; -VITA100054 PO; -[UNRECOGNIZED DRUG - CODE] PO
[2024-09-16 10:36] LABS: HEMOGLOBIN 12.5 g/dl (12.0-15.5); MEAN CORPUSCULAR HEMOGLOBIN 29.1 pg (27.0-33.0); MEAN CORPUSCULAR HGB CONC 32.1 g/dl (32.0-36.5); MEAN CORPUSCULAR VOLUME 90.7 fl (80.0-96.0); PLATELET COUNT, AUTOMATED 213 10^3/uL (150-450); WHITE BLOOD COUNT 7.6 10^3/uL (4.0-10.0)
[2024-09-16 11:01] LABS: ALBUMIN 3.4 G/DL (3.2-5.2); BILIRUBIN,TOTAL 0.3 MG/DL (0.3-1.2); CALCIUM LEVEL 9.9 MG/DL (8.3-10.6); CREATININE FOR GFR 1.02 MG/DL (0.55-1.30); GLOMERULAR FILTRATION RATE 56.7 (>39); POTASSIUM SERUM 4.3 MMOL/L (3.5-5.1); TOTAL PROTEIN 6.2 G/DL (5.7-8.2)
== END ==
LOC: M LAB 09:54
PROVIDERS: ATTEND Urology
DX: N20.1 Calculus of ureter (principal)

== ENCOUNTER → 2024-09-23 | Outpatient (REF) | payer OTHER, MEDICARE ==
[~2024-09-23] MED LIST changes: +ACET-645 PO; +OMEP40CA5 PO; +TOLT4CAP3 PO; +VITA100054 PO; +[UNRECOGNIZED DRUG - CODE] PO
[2024-09-23 13:40] LABS: APPEARANCE, URINE HAZY (CLEAR); BACTERIA, URINE AUTO NEGATIVE (NEGATIVE); BILIRUBIN, URINE AUTO NEGATIVE (NEGATIVE); BLOOD, URINE BLOOD NEGATIVE (NEGATIVE); COLOR, URINE YELLOW (YELLOW); GLUCOSE, URINE (UA) AUTO NEGATIVE (NEGATIVE); KETONE, URINE AUTO NEGATIVE (NEGATIVE); LEUKOCYTE ESTERASE, URINE AUTO 2+ (NEGATIVE); MUCUS, URINE SMALL (NEGATIVE); NITRITE, URINE AUTO NEGATIVE (NEGATIVE); PROTEIN, URINE AUTO NEGATIVE (NEGATIVE); RBC, URINE AUTO 3 /HPF (0-3); SPECIFIC GRAVITY URINE AUTO 1.012 (1.002-1.035); SQUAMOUS EPITHELIAL CELL UR AU 1 /HPF (0-6); UROBILINOGEN, URINE AUTO 0.2 mg/dL (0.0-2.0); WBC, URINE AUTO 69 /HPF (0-3)
== END ==
LOC: M LAB REF 12:22
PROVIDERS: ATTEND Internal Medicine
DX: Z01.818 Encounter for other preprocedural examination (principal)

== ENCOUNTER 2024-10-03 08:14 | Day surgery (SDC) | payer OTHER, MEDICARE ==
[~2024-10-03] VITALS: Ht 162.6 cm; Wt 93.6 kg
[~2024-10-03 08:14] MED LIST changes: +ceFAZolin SOD 2 GM in IV 1 EA IV ONE
[2024-10-03] MEDS ORDERED: NS (Normal Saline) 0.9% 1,000 ML IV SCH (08:30)
[2024-10-03] MEDS ORDERED: ISOVUE-300 61% 100ML VIAL As Ordered ONE (10:08)
[2024-10-03] MEDS ORDERED: ONDANSETRON 4MG 2ML VIAL As Ordered ONE (10:20)
[2024-10-03] MEDS ORDERED: propofoL 200 MG/20 ML VIAL As Ordered ONE (10:20)
[2024-10-03] MEDS ORDERED: LIDOCAINE 2% 100MG/5ML SDV (FOR ANES.) As Ordered ONE (10:22)
[2024-10-03] MEDS ORDERED: MIDAZOLAM INJ 2MG/2ML VIAL As Ordered ONE (10:23)
[2024-10-03] MEDS ORDERED: fentaNYL 100 MCG/2 ML INJECTION As Ordered ONE (10:23)
[2024-10-03] MEDS ORDERED: ACETAMINOPHEN 1000MG/100ML IV BAG As Ordered ONE (10:24)
[2024-10-03] MEDS ORDERED: ONDANSETRON 4MG 2ML VIAL IV PRN (11:10)
[2024-10-03] MEDS ORDERED: fentaNYL 100 MCG/2 ML INJECTION IV PRN (11:10)
[2024-10-03] MEDS ORDERED: OXYB5TAB14 PO (11:16)
[2024-10-03] MEDS ORDERED: MACR100C43 PO (11:16)
[2024-10-03] MEDS ORDERED: PYRI1TAB5 PO (11:16)
[2024-10-03 12:22] VITALS: BP 173/91; TEMP 97.4; O2SAT 98
== END 2024-10-03 12:35 | disposition home or self-care (01) ==
LOC: M SDC 08:14
PROVIDERS: ATTEND Urology
DX: N20.1 Calculus of ureter (principal); E11.9 Type 2 diabetes mellitus without complications; I10 Essential (primary) hypertension; Z85.6 Personal history of leukemia; Z92.21 Personal history of antineoplastic chemotherapy; K21.9 Gastro-esophageal reflux disease without esophagitis; M79.7 Fibromyalgia; Z79.899 Other long term (current) drug therapy; Z79.84 Long term (current) use of oral hypoglycemic drugs; Z79.85 Long-term (current) use of injectable non-insulin antidiabetic drugs; Z79.620 Long term (current) use of immunosuppressive biologic; Z85.41 Personal history of malignant neoplasm of cervix uteri; Z90.710 Acquired absence of both cervix and uterus; Z90.49 Acquired absence of other specified parts of digestive tract; Z88.5 Allergy status to narcotic agent; Z88.8 Allergy status to other drugs, medicaments and biological substances; Z88.1 Allergy status to other antibiotic agents
CPT/HCPCS: 52332; 52351; 76000; 82365; C1769; C1894; C2617; J0131; J1100; J2250; J2405; J3010; Q9967

== ENCOUNTER → 2025-05-14 | Outpatient (REF) | payer OTHER, MEDICARE ==
[~2025-05-14] MED LIST changes: +D31000CA5 PO; +MACR100C43 PO; +OXYB5TAB14 PO; +PYRI1TAB5 PO; -VITA100054 PO; -ceFAZolin SOD 2 GM in IV 1 EA IV ONE
[2025-05-14 18:37] LABS: APPEARANCE, URINE CLOUDY (CLEAR); BACTERIA, URINE AUTO NEGATIVE (NEGATIVE); BILIRUBIN, URINE AUTO NEGATIVE (NEGATIVE); BLOOD, URINE BLOOD NEGATIVE (NEGATIVE); GLUCOSE, URINE (UA) AUTO NEGATIVE (NEGATIVE); KETONE, URINE AUTO NEGATIVE (NEGATIVE); LEUKOCYTE ESTERASE, URINE AUTO 3+ (NEGATIVE); MUCUS, URINE SMALL (NEGATIVE); NITRITE, URINE AUTO NEGATIVE (NEGATIVE); PROTEIN, URINE AUTO 1+ mg/dL (NEGATIVE); RBC, URINE AUTO 4 /HPF (0-3); SPECIFIC GRAVITY URINE AUTO 1.020 (1.002-1.035); SQUAMOUS EPITHELIAL CELL UR AU 1 /HPF (0-6); UROBILINOGEN, URINE AUTO 0.2 mg/dL (0.0-2.0); WBC, URINE AUTO TNTC /HPF (0-3)
== END ==
LOC: M SMT 17:18
PROVIDERS: ATTEND Urology
DX: N39.0 Urinary tract infection, site not specified (principal)

== ENCOUNTER → 2025-05-14 | Outpatient (CLI) | payer OTHER, MEDICARE | LOC: M SOG 07:00 | PROVIDERS: ATTEND Orthopaedic Surgery | DX: M17.0 Bilateral primary osteoarthritis of knee (principal) ==

== ENCOUNTER → 2025-06-17 | Outpatient (REF) | payer OTHER, MEDICARE | LOC: M LAB REF 17:29 | PROVIDERS: ATTEND Nurse Practitioner Adult Health | DX: R30.0 Dysuria (principal) ==

== ENCOUNTER → 2025-07-25 | Outpatient (CLI) | payer OTHER, MEDICARE ==
[2025-07-25 15:28] LABS: APPEARANCE, URINE CLOUDY (CLEAR); BACTERIA, URINE AUTO 1+ (NEGATIVE); BILIRUBIN, URINE AUTO NEGATIVE (NEGATIVE); BLOOD, URINE BLOOD NEGATIVE (NEGATIVE); GLUCOSE, URINE (UA) AUTO NEGATIVE (NEGATIVE); KETONE, URINE AUTO NEGATIVE (NEGATIVE); LEUKOCYTE ESTERASE, URINE AUTO 3+ (NEGATIVE); MUCUS, URINE SMALL (NEGATIVE); NITRITE, URINE AUTO NEGATIVE (NEGATIVE); PROTEIN, URINE AUTO 1+ mg/dL (NEGATIVE); RBC, URINE AUTO 5 /HPF (0-3); SPECIFIC GRAVITY URINE AUTO 1.017 (1.002-1.035); SQUAMOUS EPITHELIAL CELL UR AU 1 /HPF (0-6); UROBILINOGEN, URINE AUTO 0.2 mg/dL (0.0-2.0); WBC, URINE AUTO TNTC /HPF (0-3)
== END ==
LOC: M RAD 14:08
PROVIDERS: ATTEND Urology
DX: N20.2 Calculus of kidney with calculus of ureter (principal)

== ENCOUNTER → 2025-08-29 | Outpatient (REF) | payer OTHER, MEDICARE ==
[~2025-08-29] MED LIST changes: +HAIR1CHW2 PO; +TAMS1CAP17 PO
== END ==
LOC: M LABSMT 15:40
PROVIDERS: ATTEND Nurse Practitioner Family
DX: R39.9 Unspecified symptoms and signs involving the genitourinary system (principal)

== ENCOUNTER → 2025-08-29 | Outpatient (CLI) | payer OTHER, MEDICARE ==
[2025-08-29 17:05] LABS: PLATELET COUNT, AUTOMATED 170 10^3/uL (150-450)
[2025-08-29 17:19] LABS: APPEARANCE, URINE CLOUDY (CLEAR); BACTERIA, URINE AUTO NEGATIVE (NEGATIVE); BILIRUBIN, URINE AUTO NEGATIVE (NEGATIVE); BLOOD, URINE BLOOD 1+ (NEGATIVE); GLUCOSE, URINE (UA) AUTO NEGATIVE (NEGATIVE); KETONE, URINE AUTO NEGATIVE (NEGATIVE); LEUKOCYTE ESTERASE, URINE AUTO 3+ (NEGATIVE); NITRITE, URINE AUTO NEGATIVE (NEGATIVE); PROTEIN, URINE AUTO 1+ mg/dL (NEGATIVE); RBC, URINE AUTO 14 /HPF (0-3); SPECIFIC GRAVITY URINE AUTO 1.018 (1.002-1.035); SQUAMOUS EPITHELIAL CELL UR AU 1 /HPF (0-6); UROBILINOGEN, URINE AUTO 0.2 mg/dL (0.0-2.0); WBC, URINE AUTO TNTC /HPF (0-3)
[2025-08-29 17:32] LABS: CALCIUM LEVEL 8.9 MG/DL (8.3-10.6); CARBON DIOXIDE LEVEL 28.0 MMOL/L (20-31); CHLORIDE LEVEL 105.0 MMOL/L (98-107); CREATININE FOR GFR 1.02 MG/DL (0.55-1.30); GLOMERULAR FILTRATION RATE 58.1 (>39); POTASSIUM SERUM 3.9 MMOL/L (3.5-5.1); SODIUM LEVEL 142.0 MMOL/L (136-145)
== END ==
LOC: M RAD 15:48
PROVIDERS: ATTEND Nurse Practitioner Family
DX: R39.9 Unspecified symptoms and signs involving the genitourinary system (principal)

== ENCOUNTER → 2025-09-01 | Outpatient (CLI) | payer OTHER, MEDICARE ==
[2025-09-01 16:15] LABS: APPEARANCE, URINE CLOUDY (CLEAR); BACTERIA, URINE AUTO 1+ (NEGATIVE); BILIRUBIN, URINE AUTO NEGATIVE (NEGATIVE); BLOOD, URINE BLOOD NEGATIVE (NEGATIVE); GLUCOSE, URINE (UA) AUTO NEGATIVE (NEGATIVE); KETONE, URINE AUTO NEGATIVE (NEGATIVE); LEUKOCYTE ESTERASE, URINE AUTO 2+ (NEGATIVE); MUCUS, URINE SMALL (NEGATIVE); NITRITE, URINE AUTO NEGATIVE (NEGATIVE); PROTEIN, URINE AUTO 2+ mg/dL (NEGATIVE); RBC, URINE AUTO 8 /HPF (0-3); SPECIFIC GRAVITY URINE AUTO 1.023 (1.002-1.035); SQUAMOUS EPITHELIAL CELL UR AU 1 /HPF (0-6); UROBILINOGEN, URINE AUTO 0.2 mg/dL (0.0-2.0); WBC, URINE AUTO TNTC /HPF (0-3); YEAST LIKE CELL URINE AUTO SMALL
== END ==
LOC: M LAB 15:36
PROVIDERS: ATTEND Nurse Practitioner Family
DX: R82.90 Unspecified abnormal findings in urine (principal)

== ENCOUNTER 2025-09-08 06:08 | Day surgery (SDC) | payer OTHER, MEDICARE ==
[~2025-09-08] VITALS: Ht 162.6 cm; Wt 93.8 kg
[2025-09-08] MEDS ORDERED: LEVO1TAB39 PO (06:51)
[2025-09-08] MEDS: CIPROFLOXACIN/D5W 400 MG/200 ML BAG As Ordered ONE (07:21)
[2025-09-08] MEDS ORDERED: LIDOCAINE 2% 100 MG/5 ML SDV (FOR ANES.) As Ordered ONE (07:21)
[2025-09-08] MEDS ORDERED: ONDANSETRON 4MG/2ML VIAL As Ordered ONE (07:21)
[2025-09-08] MEDS ORDERED: KETOROLAC 30 MG/ML 1 ML VIAL As Ordered ONE (07:22)
[2025-09-08] MEDS ORDERED: ACETAMINOPHEN 1000MG/100ML IV BAG As Ordered ONE (07:22)
[2025-09-08] MEDS: ceFAZolin SOD 2 GM IV ONCE IV ONE (07:43)
[2025-09-08] MEDS: CIPROFLOXACIN 400 MG in IV 1 EA IV ONE (07:44)
[2025-09-08] MEDS: ISOVUE-300 61% 100 ML VIAL As Ordered ONE (08:01)
[2025-09-08] MEDS: ONDANSETRON 4MG/2ML VIAL IV PRN (08:50)
[2025-09-08] MEDS ORDERED: LR 500 ML IV ONE (08:55)
[2025-09-08] MEDS: LR 1,000 ML IV SCH (09:00)
[2025-09-08 09:46] VITALS: BP 138/70; TEMP 97.7; O2SAT 98
== END 2025-09-08 10:19 | disposition home or self-care (01) ==
LOC: M SDC 06:08
PROVIDERS: ATTEND Urology
DX: N20.0 Calculus of kidney (principal); E11.9 Type 2 diabetes mellitus without complications; I10 Essential (primary) hypertension; K58.9 Irritable bowel syndrome, unspecified; K21.9 Gastro-esophageal reflux disease without esophagitis; Z79.84 Long term (current) use of oral hypoglycemic drugs; Z79.899 Other long term (current) drug therapy; Z85.43 Personal history of malignant neoplasm of ovary; Z90.710 Acquired absence of both cervix and uterus; Z85.6 Personal history of leukemia; Z92.21 Personal history of antineoplastic chemotherapy; Z90.49 Acquired absence of other specified parts of digestive tract; Z90.89 Acquired absence of other organs; Z88.5 Allergy status to narcotic agent; Z88.8 Allergy status to other drugs, medicaments and biological substances; Z88.1 Allergy status to other antibiotic agents; Z87.19 Personal history of other diseases of the digestive system
CPT/HCPCS: 52356; 74420; 82365; 88108; C1769; C1894; C2617; J0131; J0688; J0744; J1885; J2405; J2765; J3010; Q9967